=== PATIENT | male | born 1950 | race Caucasian/White ===

== ENCOUNTER 2022-12-27 10:44 | Outpatient (CLI) | payer OTHER, SELFPAY ==
--- NOTE | ~2022-12-27 | XR_ITS ---
EXAMINATION: XR barium swallow modified DATE: 12/27/2022 11:19 INDICATION: Dysphagia. TECHNIQUE: The patient was given barium-containing material of multiple consistencies to swallow by dawood doshi speech pathologist while I performed fluoroscopy. Dose-area product was [id number] Gy-cm2. FINDINGS: Oral Stage: Within functional limits Pharyngeal Phase: Within functional limits Cervical/Esophageal Stage: Within functional limits IMPRESSION: Modified esophagram findings as above. Please refer to the speech therapy report [facility]. Reviewed, dictated and finalized at [facility]. Reviewed, dictated and finalized at location [facility]. CTOR OF CATH LAB IMPRESSION: Modified esophagram findings as above. Please refer to the speech t herapy report for specific recommendations.
--- NOTE | 2022-12-27 11:56 | REHSTMBS ---
Assessment and note entered by Sita Mai, FRUIT CUTTER Modified Barium Swallow Evaluation Feeding Type Recommended Oral Food Consistency Regular, Level 7 Liquid Consistency Thin (0) ST Clinical Summary MODIFIED BARIUM SWALLOW STUDY Patient reports a history of two different bowel blockages. He did not report history of bariatric surgery however this was noted in the physician orders. Patient also expressed that he has significant gastroesophageal reflux and a burning sensation frequently. Additionally today he reported that he has pain/discomfort in the left stomach area, he described as bloating and was disappointed that this assessment does not assess that area. He did not deny swallowing difficulty but did not report any concerns with swallowing. The patient was presented with varying consistencies and exhibited quick swallows with no evidence of penetration and no pharyngeal residual after swallowing. Swallowing skills were determined to be within normal limits. Results indicate this patient may remain on Regular Diet and Liquids however he is referred back to his physician for further assessment of his complaints. Thank you for this referral.
== END 2022-12-27 10:45 | disposition home or self-care (01) ==
PROVIDERS: PCP Family Medicine; Visit Provider Family Medicine
DX: R11.10 Vomiting, unspecified (principal); Z98.84 Bariatric surgery status; D64.9 Anemia, unspecified; E66.01 Morbid (severe) obesity due to excess calories; K21.9 Gastro-esophageal reflux disease without esophagitis; J30.0 Vasomotor rhinitis
CPT/HCPCS: 92611

== ENCOUNTER 2024-10-04 11:07 | Outpatient (CLI) | payer MEDICARE, OTHER, SELFPAY ==
--- NOTE | ~2024-10-04 | CT_ITS ---
EXAMINATION:CT diagnostic chest wo con DATE: 10/04/2024 11:32 INDICATION: Pulmonary nodule. TECHNIQUE: Computed tomography (CT) of the chest was performed without intravenous contrast. Automate d exposure control and iterative reconstruction technique were employed. The dose-length product (DLP ) was 258.32 mGy-cm. COMPARISON: CT abdomen and pelvis 04/08/19 FINDINGS: Calcified pulmonary nodules and calcified hilar and mediastinal lymph nodes are consistent with old granulomatous disease. There are multiple nodules in the right lung measuring up to 7 mm. No pleural effusion. The heart size is normal. There are coronary artery calcifications. No pericardial effusion. There is bilateral gynecomastia. There are changes of gastric bypass procedure. There are changes of cholecystectomy. There are bridging endplate osteophytes at multiple levels in the spine, consistent with diffuse idiopathic skeletal hyperostosis (DISH). IMPRESSION: 1. Pulmonary nodules measuring up to 7 mm, probably benign. Noncontrast low-dose chest CT is recommen ded in 6 months. Reviewed, dictated and finalized at location A. M TURBINE OPERATOR IMPRESSION: 1. Pulmonary nodules measuring up to 7 mm, probably benign. Noncontrast low-dos e chest CT is recommended in 6 months.
== END 2024-10-04 11:08 | disposition home or self-care (01) ==
LOC: MICIMG 11:08
PROVIDERS: PCP Family Medicine; Visit Provider Family Medicine
DX: R91.8 Other nonspecific abnormal finding of lung field (principal)
CPT/HCPCS: 71250

== ENCOUNTER 2024-11-11 08:34 | Outpatient (CLI) | payer MEDICARE, OTHER, SELFPAY ==
--- NOTE | ~2024-11-11 | MR_ITS ---
EXAMINATION: MR thoracic spine wo con DATE: 11/11/2024 08:59 INDICATION: Thoracic back pain. TECHNIQUE: Magnetic resonance imaging (MRI) of the thoracic spine was performed without intravenous c ontrast. COMPARISON: Thoracic spine MRI 02/26/2019 FINDINGS: There is 10 degrees levoscoliosis of thoracic spine. There are Schmorl's nodes at multiple levels. There is mildly decreased disc height at T3-T4, T5-T6, T6-T7, T8-T9, and T10-T11. At T5-T6, t here is a central protrusion with mild central canal stenosis. There is multilevel facet joint osteoa rthritis, severe in the upper thoracic spine. On the right, there is mild neural foraminal stenosis a t T1-T2, T2-T3, and T3-T4. On the left, there is mild neural foraminal stenosis at T1-T2 and T2-T3. T he distal spinal cord signal intensity is normal. The conus medullaris is at L1. IMPRESSION: 1. Mild thoracic spondylosis, slightly worsened from 02/26/2019. 2. Thoracic levoscoliosis. Reviewed, dictated and finalized at location [] 3D ARTIST
== END 2024-11-11 08:35 | disposition home or self-care (01) ==
LOC: MICIMG 08:35
PROVIDERS: PCP Family Medicine; Visit Provider Family Medicine
DX: M43.04 Spondylolysis, thoracic region (principal); M41.84 Other forms of scoliosis, thoracic region
CPT/HCPCS: 72146

== ENCOUNTER 2025-02-28 09:06 | Outpatient (CLI) | payer MEDICARE, OTHER, SELFPAY ==
--- NOTE | ~2025-02-28 | MR_ITS ---
MRI of the lumbar spine Clinical History: Radiculopathy Technique: Axial T2-weighted images, and sagittal T1-weighted, T2-weighted, and and T2 fat-sat images were acquired. Findings: No fracture identified. There is minimal grade 1 anterolisthesis of L4 over L5. No suspicio us bone marrow signal abnormality seen. At L1-L2, L2-L3, there is no disc bulge or herniation. There is minimal facet hypertrophy. No central canal stenosis or neural foraminal narrowing at these levels. At L3-L4, there is minimal disc bulge with moderate to advanced facet arthropathy. No central canal s tenosis. There is mild right neural foraminal narrowing. Left neural foramen preserved. At L4-L5, there is mild disc bulge with advanced facet arthropathy. No central canal stenosis. There is mild right neural foraminal narrowing. Left neural foramen preserved. At L5-S1, there is mild disc bulge with moderate facet arthropathy. No central canal stenosis or neur al foraminal narrowing. Paravertebral soft tissues are unremarkable. Impression: Mild degenerative spondylosis overall, as above. Reviewed, dictated and finalized at [facility]. Impression: Mild degenerative spondylosis overall, as above.
== END 2025-02-28 09:07 | disposition home or self-care (01) ==
LOC: MICIMG 09:07
PROVIDERS: PCP Family Medicine; Visit Provider Physician Assistant
DX: M47.816 Spondylosis without myelopathy or radiculopathy, lumbar region (principal); M47.817 Spondylosis without myelopathy or radiculopathy, lumbosacral region
CPT/HCPCS: 72148

== ENCOUNTER 2025-06-19 10:59 | Outpatient (CLI) | payer MEDICARE, OTHER, SELFPAY ==
--- OUTSIDE RECORDS SUMMARY | 2025-06-19 11:16 | XMS_ITS | Encounter Summary ---
Author Organization [facility] Address [address] [facility] [address] [place] [address] Phone Care Team Providers Care Membership Sales Manager Name Role Phone Marielos Gonzalez MD Primary Care Provider Melissa Nichole MD Unavailable Encounter Details Date Type Department Care Team (Latest Contact Info) Description 03/06/2021 Orders Only [facility] Scanning, Provider Social History Tobacco Use Types Packs/Day Years Used Date Smoking Tobacco: Never Smokeless Tobacco: Never Alcohol Use Standard Drinks/Week Comments No 0 (1 standard drink = 0.6 oz pur e alcohol) Sex and Gender Information Value Date Recorded Sex Assigned at Not on file 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 Look okay except low HDL cholesterol. Continue current meds. * María Elena Marinelli MD - 03/06/2021 11:59 PM CDT Has he ever been on a statin? * Rhea Radford RN - 03/06/2021 11:59 PM CDT 04/29: spoke w/ pts re: CHRISTINA's recs. She verb understanding. Instructed her to have pt call w/ any issues. * Rhea Radford RN - 03/06/2021 11:59 PM CDT Pt has never taken statin. ALB informed and aware. documented in this encounter Plan of Treatment Not on file documented as of this encounter Procedures Procedure Name Priority Date/Time Associated Diagnosis Comments SCAN - LABS 03/06/2021 documented in this encounter Results * SCAN - LABS (03/06/2021) us Provider Scanning Final Result documented in this encounter Visit Diagnoses Not on filedocumented in this encounter Additional Health Concerns Infection Onset Date Last Indicated Resolved Time COVID: Suspected 08/03/2024 08/03/2024 08/03/2024 6:32 PM CDT COVID: Suspected 08/04/2024 08/04/2024 08/04/2024 1:09 AM CDT documented as of this encounter Care Teams Membership Sales Manager Relationship Specialty Start Date End Date Marielos Gonzalez MD [address] [place] [address] PCP - General Family Medicine 8/30/18 Melissa Nichole MD [id number] [place] [address] Consulting Physician General Surgery 07/08/22 documented as of this encounter
--- OUTSIDE RECORDS SUMMARY | 2025-06-19 11:16 | XMS_ITS | Encounter Summary ---
Author Organization [facility] Address [address] [facility] [address] [place] [address] Phone Care Team Providers Care Hotel Staff Member Name Role Phone Marielos Gonzalez MD Primary Care Provider Melissa Nichole MD Unavailable [phone] Encounter Details Date Type Department Care Team (Late st Contact Info) Description 08/29/2018 Telephone [facility] [address] [facility] Advanced Medicine 8th [place] [address] [place] [address] Naseem Arriaga MD [address] 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 Gender Identity Male 03/29/2022 4:39 AM CDT Sexual Orientation Straight 07/02/2021 12 :35 PM CDT documented as of this encounter Plan of Treatment Not on file documented as of this encounter Visit Diagnoses Not on filedocumented in this encounter Additional Health Concerns Infection Onset Date Last Indicated Resolved Time COVID: Suspected 08/03/2024 08/03/2024 08/03/2024 6:32 PM CDT COVID: Suspected 08/04/2024 08/04/2024 08/04/2024 1:09 AM CDT documented as of this encounter Care Teams Hotel Staff Member Relationship Specialty Start Date End Date Marielos Gonzalez MD [address] [place] [address] PCP - General Family Medicine 07/19/18 Melissa Nichole MD [id number] [place] [address] Consulting Physician General Surgery 07/08/22 documented as of this encounter
--- OUTSIDE RECORDS SUMMARY | 2025-06-19 11:16 | XMS_ITS | Patient Health Record ---
Author Organization Formerly [facility], [facility] dicine Address [address] [place] [address] Care Team Providers Care Inventory Management Specialist Name Role Phone Dr. Marielos Gonzalez Primary Care Provider [phone] Migration, Provider Unavailable Unavailable Allergies Allergen (clinical drug ingredient) Drug/Non Drug Allergy documented on EMR Reaction Allergy Type Onset Date Status Dye dye (uncoded) contrast dye Allergy 07/15/2021 Ac tive Results Component Value Reference Range Flag Notes B-Type Natriuretic Peptide Reviewed date:08/10/2024 12:00:00 AM Interpretation: Performing Lab: Notes/Report: BNP 26 pg/mL Comprehensive Metabolic Pane l Reviewed date:08/10/2024 12:00:00 AM Interpretation: Performing Lab: Notes/Report: Albumin Lvl 3.8 g/dL Albumin/Globulin Ratio 1.3 Alk Phos 102 unit/L ALT 53 unit/L ANION GAP 3.6 mmol/L AST 60 unit/L Bilirubin Total 0.7 mg/dL BUN 17 mg/dL Calcium Lvl 9.2 mg/dL Chloride Lvl 99 mmol/L CO2 30 mmol/L Creatinine Lvl 1.18 mg/dL eGFR CKD-EPI 65 mL/min/1.73 m2 Glucose Lvl 93 mg/dL Potassium Lvl 5.2 mmol/L Protein Total 6.8 g/dL Sodium Lvl 133 mmol/L Magnesium Reviewed date:08/10/2024 12:00:00 AM Interpretation: Performing Lab: Notes/Report: Magnesium Lvl 2.4 mg/dL Comprehensive Metabolic Pane l Reviewed date:08/20/2024 12:00:00 AM Interpretation: Performing Lab: Notes/Report: Albumin Lvl 3.8 g/dL Albumin/Globulin Ratio 1.3 Alk Phos 80 unit/L ALT 32 unit/L ANION GAP 3.6 mmol/L AST 31 unit/L Bilirubin Total 0.7 mg/dL BUN 24 mg/dL Calcium Lvl 9.2 mg/dL Chloride Lvl 104 mmol/L CO2 24 mmol/L Creatinine Lvl 1.53 mg/dL eGFR CKD-EPI 48 mL/min/1.73 m2 Glucose Lvl 179 mg/dL Potassium Lvl 4.3 mmol/L Protein Total 6.7 g/dL Sodium Lvl 132 mmol/L Basic Metabolic Panel Reviewed date:09/10/2024 12:00:00 AM Interpretation: Performing Lab: Notes/Report: ANION GAP 3.6 mmol/L BUN 20 mg/dL Calcium Lvl 9.1 mg/dL Chloride Lvl 107 mmol/L CO2 25 mmol/L Creatinine Lvl 1.26 mg/dL eGFR CKD-EPI 60 mL/min/1.73 m2 Glucose Lvl 116 mg/dL Potassium Lvl 4.5 mmol/L Sodium Lvl 136 mmol/L Comprehensive Metabolic Pane l Reviewed date:06/19/2025 09:00:03 AM Interpretation: Performing Lab: Notes/Report: Test Performed by: [place] [address] [employer] Setter Lock[employer]ch: Bill Ortega DO Report Forwarded By: [id number] [address] Glucose Lvl 76 74-109 mg/dL ADA risk stratification for diabetes <100 mg/dL = Normal 100-125 mg/dL = Increased risk for future diabetes >=126 mg/dL = Diabetes, if on more than one testing occasion BUN 14 7-25 mg/dL Creatinine Lvl 1.04 0.70-1.30 mg/dL eGFR CKD-EPI 76 >=90 mL/min/1.73 m2 L The CKD-EPI equation is validated in individuals 18 years of age and older. It is less accurate in patients with extremes of muscle mass, restriction of dietary protein, ingestion of creatine, extra-renal metabolism of creatinine, or treatment with medications that affect renal tubular creatinine secretion. GFR Categories in Chronic Kidney Disease (CKD) GFR GFR (mL/min/1.73 Category: square meters): Interpretation: G1 90 or greater Normal or high* G2 60-89 Mild decrease* G3a 45-59 Mild to moderate decrease G3b 30-44 Moderate to severe decrease G4 15-29 Severe decrease G5 14 or less Kidney failure *In the absence of evidence of kidney damage, neither GFR category G1 nor G2 fulfill the criteria for CKD (Kidney Int Suppl 2013;3:1-150) Calcium Lvl 9.5 8.6-10.3 mg/dL Sodium Lvl 137 136-145 mmol/L Potassium Lvl 4.2 3.5-5.1 mmol/L Chloride Lvl 107 98-107 mmol/L CO2 26 21-31 mmol/L Anion Gap 3.6 <=16.0 mmol/L Alk Phos 77 34-104 unit/L Bilirubin Total 0.6 0.3-1.0 mg/dL Albumin Lvl 4.2 3.5-5.2 g/dL Protein Total 6.5 6.4-8.9 g/dL Albumin/Globulin Ratio 1.8 1.1-2.5 ALT 41 7-52 unit/L AST 27 13-39 unit/L Charge Venipuncture Reviewed date:06/19/2025 09:00:03 AM Interpretation: Performing Lab: Notes/Report: Report Forwarded By: [address] [place] [address] Hemoglobin A1c Reviewed date:04/03/2025 02:37:54 PM Interpretation: Performing Lab: Notes/Report: Magnesium, Serum Reviewed date:04/03/2025 02:36:58 PM Interpretation: Performing Lab: Notes/Report: Thyroxine (T4) Free, Direct, S Reviewed date:04/03/2025 02:36:25 PM Interpretation: Performing Lab: Notes/Report: TSH Reviewed date:04/03/2025 02:37:39 PM Interpretation: Performing Lab: Notes/Report: CBC With Differential/Platel et Reviewed date:04/03/2025 02:37:14 PM Interpretation: Performing Lab: Notes/Report: Comp. Metabolic Panel (14) Reviewed date:04/03/2025 02:36:41 PM Interpretation: Performing Lab: Notes/Report: PSA, total Reviewed date:04/03/2025 02:36:09 PM Interpretation: Performing Lab: Notes/Report: Charge Venipuncture Reviewed date:06/19/2025 08:31:31 AM Interpretation: Performing Lab: Notes/Report: Report Forwarded By: [address] [place] [address] Hemoglobin A1c {Glycosylated } Reviewed date:06/19/2025 08:31:31 AM Interpretation: Performing Lab: Notes/Report: Test Performed by: [place] [address] Zipper Setter Lock[employer]ch: Bill Ortega DO Report Forwarded By: [address] [place] [address] Hemoglobin A1c 5.0 <=6.4 % Hemoglobin A1C < 5.7% = Normal 5.7-6.4% = Increased risk for future diabetes >=6.5% = Diabetes eAvg Glucose 97 <=117 mg/dL eAG Reference Range <117 mg/dL = Normal 117-137 mg/dL = Increased Risk For Future Diabetes >137 mg/dL = Diabetes T4 Free Reviewed date:06/19/2025 08:31:31 AM Interpretation: Performing Lab: Notes/Report: Test Performed by: [place] [id number] [employer]ch: Bill Ortega DO Report Forwarded By: [address] [place] [address] T4 Free 0.89 0.60-1.70 ng/dL CBC w Auto Diff Reviewed date:06/19/2025 08:31:31 AM Interpretation: Performing Lab: Notes/Report: Test Performed by: [address] [address] Zipper Setter Lock[employer]ch: Bill Ortega DO Report Forwarded By: [address] [place] [address] WBC 6.5 4.0-11.7 K/mcL RBC 4.23 4.28-5.56 x10*6/mcL L Hgb 13.4 13.0-17.0 g/dL Hct 40.4 38.1-48.9 % MCV 95.5 83.4-98.1 fL MCH 31.7 27.0-34.2 pg MCHC 33.2 31.8-35.3 g/dL RDW 14.5 12.0-16.4 % Platelets 266 149-393 K/mcL MPV 7.2 7.0-11.0 fL Neutro Auto 49.9 45.3-79.0 % Lymph Auto 42.7 11.8-45.9 % Hettinger Auto 6.1 4.4-12.0 % Eosinophil Auto 1.1 0.0-6.3 % Basophil Auto 0.2 0.2-1.6 % Neutro Absolute 3.3 2.4-8.4 x10*3/mcL Lymph Absolute 2.8 0.8-3.7 x10*3/mcL Hettinger Absolute 0.4 0.3-1.1 x10*3/mcL Eos Absolute 0.1 0.0-0.5 x10*3/mcL Comprehensive Metabolic Pane l Reviewed date:06/19/2025 08:31:31 AM Interpretation: Performing Lab: Notes/Report: Test Performed by: Catherine Garcia [address] [address] Zipper Setter Lock[employer]ch: Bill Ortega DO Report Forwarded By: [address] [address] Glucose Lvl 125 74-109 mg/dL H ADA risk stratification for diabetes <100 mg/dL = Normal 100-125 mg/dL = Increased risk for future diabetes >=126 mg/dL = Diabetes, if on more than one testing occasion BUN 19 7-25 mg/dL Creatinine Lvl 1.18 0.70-1.30 mg/dL eGFR CKD-EPI 65 >=90 mL/min/1.73 m2 L The CKD-EPI equation is validated in individuals 18 years of age and older. It is less accurate in patients with extremes of muscle mass, restriction of dietary protein, ingestion of creatine, extra-renal metabolism of creatinine, or treatment with medications that affect renal tubular creatinine secretion. GFR Categories in Chronic Kidney Disease (CKD) GFR GFR (mL/min/1.73 Category: square meters): Interpretation: G1 90 or greater Normal or high* G2 60-89 Mild decrease* G3a 45-59 Mild to moderate decrease G3b 30-44 Moderate to severe decrease G4 15-29 Severe decrease G5 14 or less Kidney failure *In the absence of evidence of kidney damage, neither GFR category G1 nor G2 fulfill the criteria for CKD (Kidney Int Suppl 2013;3:1-150) Calcium Lvl 8.8 8.6-10.3 mg/dL Sodium Lvl 134 136-145 mmol/L L Potassium Lvl 4.4 3.5-5.1 mmol/L Chloride Lvl 106 98-107 mmol/L CO2 23 21-31 mmol/L Anion Gap 4.6 <=16.0 mmol/L Alk Phos 84 34-104 unit/L Bilirubin Total 0.9 0.3-1.0 mg/dL Albumin Lvl 3.7 3.5-5.2 g/dL Protein Total 6.1 6.4-8.9 g/dL L Albumin/Globulin Ratio 1.5 1.1-2.5 ALT 66 7-52 unit/L H AST 40 13-39 unit/L H Lipid Panel {Chol, Trig, HDL , LDL} Reviewed date:06/19/2025 08:31:31 AM Interpretation: Performing Lab: Notes/Report: Test Performed by: [place] [id number] Zipper Setter Lockstitch: Bill Ortega DO Report Forwarded By: [address] [place] [address] Cholesterol Total 107 <=199 mg/dL Triglycerides 167 0-149 mg/dL H Triglyceride Reference Ranges: <150 mg/dL Normal 150 - 199 mg/dL Borderline High 200 - 499 mg/dL High >=500 mg/dL Very High LDL 38 <=100 mg/dL LDL Optimal: <100 Near or above optimal: 100-129 Borderline high: 130-159 High: 160-189 Very high: >=190 Coronary heart disease risk factors should be considered when determining LDL goals. Please refer to ATPIII guidelines for further information. If LDL is not calculated, please call the lab to add on the direct LDL methodology, if desired. HDL 35 23-92 mg/dL Non HDL Cholesterol 72 <=130 mg/dL Chol/HDL 3 0-5 Coronary Risk 33 Coronary Risk Factor - Male Dangerous Risk: <7 % High Risk: 7-15 % Average Risk: 15-25 % Below Average Risk: 25-37 % Coronary Risk Factor - Female Dangerous Risk: <12 % High Risk: 12-18 % Average Risk: 18-27 % Below Average Risk: 27-40 % Magnesium Reviewed date:06/19/2025 08:31:31 AM Interpretation: Performing Lab: Notes/Report: Test Performed by: [address] [address] Zipper Setter Lockstitch: Bill Ortega DO Report Forwarded By: [address] [place] [address] Magnesium Lvl 2.0 1.6-2.4 mg/dL Thyroid Stimulating Hormone Reviewed date:06/19/2025 08:31:31 AM Interpretation: Performing Lab: Notes/Report: Test Performed by: [address] [address] Zipper Setter Lockstitch: Bill Ortega DO Report Forwarded By: [address] [place] [address] TSH 2.05 0.45-5.33 mcIU/mL PSA Annual Screening Reviewed date:06/19/2025 08:31:31 AM Interpretation: Performing Lab: Notes/Report: Test Performed by: [address] [address] Zipper Setter Lockstitch: Bill Ortega DO Report Forwarded By: [address] [place] [address] PSA Total 3.42 0.00-4.00 ng/mL Reason For Referral [facility] please Diagnosis 1 Pain in thoracic spi ne (M54.6) Referral Organization [facility] Referring Provider First Name Dr. Arceo Referring Provider Last Name Benld Referring Provider [facility]ity [facility] Referred Provider Specialty Pain Medicin e General Notes Vane Epps 0 12/13/2024 11:08:38 AM MENTAL HEALTH PROFESSIONAL >Faxed referral to Interventional Pain [phone] Jessica 12/23/2024 03:30:06 PM MENTAL HEALTH PROFESSIONAL >Called office to check status of referral. Office reached out to pt twice but mailbox was full and they were unable to leave message. Pt's in office on 12/23/24 and inquired about status. Gave phone number for pt to schedule Ezekiel wu Kaitlin 01/16/2025 05:50:51 PM MENTAL HEALTH PROFESSIONAL >consult note in chart. Referral Priority Routine Referral Appointment Date 01/02/2025 Medications Medication SIG (Take, Route, Frequency, Duration) Notes Start Date End Date Status Gabapentin 100 MG Capsule 1 by mouth EVERY MORNING, 1 by mouth EVERY AFTERNOON AND 3 by mouth EVERY HS.; Duration: 30 Active Olmesartan Medoxomil 20 MG Tablet 1 tablet Orally Once a day Active tiZANidine HCl 2 MG Tablet 1 tablet at bedtime as needed Orally 3 times a day As needed 11/29/2024 Active EXEL SYRINGE 3 mL 25 gauge x 1 SYRINGE, EMPTY DISPOSABLE MISCELLANEOUS; Duration: 0 *Reorder from [facility] for eRx and Interaction Alerts* 04/20/2023 Active Cyanocobalamin 1000 MCG/ML Solution Injection; Duration: 0 04/20/2023 Active Potassium Chloride Rehana ER 20 MEQ Tablet Extended Release TAKE 2 TABLET(S) BY MOUTH TWO TIMES A DAY; Duration: 30 Active Wazzle EntertainmentTouch Ultra Test ; Duration: 0 *Reorder fro [facility] for eRx and Interaction Alerts* 08/22/2022 Active Dofetilide 500 MCG Capsule 1 Oral daily; Duration: 0 days 07/19/2021 Active amLODIPine Besylate 5 MG Tablet 1 tablet Orally Once a day; Duration: 90 days Active Spironolactone 25 MG Tablet 1 Oral every day; Duration: 0 12/13/2023 Active Ketoconazole 2 % Cream External; Duration: 0 04/29/2024 Not-Taking Space Chamber ; Duration: 0 *Reorder from [facility] for eRx and Interaction Alerts* 07/19/2021 Active Dexlansoprazole 60 MG Capsule Delayed Release 1 capsule Orally Once a day; Duration: 90 days Active Jardiance 25 MG Tablet 1 tablet Orally Once a day; Duration: 90 days Active Ozempic (1 MG/DOSE) 4 MG/3ML Solution Pen-injector as directed Subcutaneous Active [employer] Ultra 2 w/Device Kit ; Duration: 0 08/22/2022 Active B Complex 1 (with folic acid) oral; Duration: 0 *Reorder from [facility] for eRx and Interaction Alerts* 07/15/2021 Active Lidocaine 5 % Patch TAKE 1 patch TOPICAL EVERY DAY (MAY WEAR UP TO 12HOURS.); Duration: 30 Active ONE TOUCH LANCETS EACH MISCELLANEOUS; Duration: 0 *Reorder from [facility] for eRx and Interaction Alerts* 08/22/2022 Active Ferrous Sulfate 325 (65 Fe) MG Tablet 1 Oral every day; Duration: 0 01/28/2022 Active Finasteride 5 MG Tablet 1 tablet Orally Once a day; Duration: 90 days Active Cyclobenzaprine HCl 5 MG Tablet 1 TABLET ORALLY EVERY NIGHT AT BEDTIME; Duration: 30 Active Xarelto 20 MG Tablet 1 tablet with food Orally Once a day; Duration: 90 days Active Loratadine 10 MG Tablet 1 tablet Orally Once a day; Duration: 90 days Active Immunizations Vaccine Route Administration Date Status Comme nts Influenza, high dose seasonal IM Intramuscular 08/27/2024 Administered ,sourcename : N ew immunization record ,immstatus : Complete Influenza, high-dose seasonal, quadrivalent, preservative free >65 yrs IM Intramuscular 10/04/2021 Administered ,sourcename : N ew immunization record ,immstatus : Complete Influenza, high-dose seasonal, quadrivalent, preservative free >65 yrs IM Intramuscular 08/28/2023 Administered ,sourcename : N ew immunization record ,immstatus : Complete Pfizer-Biontech Covid-19 Vaccine 1st dose Unknown 12/25/2020 Administered ,sourcename : Historical information -from other registry Source VFC Code: : Pfizer-Biontech Covid-19 Vaccine 1st dose Unknown 01/22/2021 Administered ,sourcename : Historical information -from other registry Source VFC Code: : Pfizer-Biontech Covid-19 Vaccine 1st dose Unknown 10/12/2021 Administered ,sourcename : Historical information -from public agency Source VFC Code: : Pfizer-Biontech Covid-19 Vaccine 1st dose IM Intramuscular 09/15/2023 Administered ,sourcename : N ew immunization record ,immstatus : Complete Pfizer-Biontech Covid-19 Vaccine 1st dose IM Intramuscular 08/27/2024 Administered ,sourcename : N ew immunization record ,immstatus : Complete Pneumococcal conjugate PCV 13 Unknown 02/28/2018 Administered ,sourcename : Historical information -from other registry Source VFC Code: : Pneumococcal polysaccharide PPV23 Unknown 10/26/2015 Administered ,sourcename : Historical information -from other registry Source VFC Code: : RSV-MAb (Respiratory syncytial virus immune globulin) IM Intramuscular 09/26/2023 Administered Source VFC Code: : Tdap Unknown 02/28/2018 Administered ,sourcename : Historical information -from other registry Source VFC Code: : Zoster Unknown 09/05/2019 Administered ,sourcename : Historical information -from other registry Source VFC Code: : Zoster Unknown 12/16/2019 Administered ,sourcename : Historical information -from other registry Source [facility] Code: : Social History Tobacco Use: Social History Observation Description Date Details (start date - stop date) Never Smoker NA - NA Social History Drug/Alcohol: Social Info Question Answer Notes AUDIT-C (Standard) Did you have a drink containing alcohol in the past year? No Points 0 Interpretation Negative Tobacco Use: Social Info Question Answer Notes Tobacco Control (Standard) Tobacco use: Nonsmoker Additional Details Category Social Info Options Details Migrated Social History Migrated Social History Number of children:4 , Employment:Currently employed ,notes : [employer] , Marital status: , Tobacco history:Never smoker , Alcohol history:Never drinks alcohol Problems Problem Type SNOMED Code ICD Code Onset Dates Problem Status W/U Status Risk Notes Problem Diabetic renal disease (291985006) Type 2 diabetes mellitus with diabetic chronic kidney disease (E11.22) Active confirmed Problem Heart failure (36574746) Heart failure, unspecified (I50.9) Active confirmed Problem Chronic kidney disease stage 2 (409058773) Chronic kidney disease, stage 2 (mild) (N18.2) Active confirmed Problem Body mass index 35.00 to 39.99 (715252375467746) Body mass index [BMI] 37.0-37.9, adult (Z68.37) Active confirmed Problem Thoracic spinal stenosis (42980921) Thoracic spinal stenosis (M48.04) Active confirmed Problem Anemia (152626753) Anemia, unspecified (D64.9) Active confirmed Problem Hypokalemia (55021812) Hypokalemia (E87.6) Active confirmed Problem Paroxysmal atrial fibrillation (195458134) Paroxysmal atrial fibrillation (I48.0) 024 Active confirmed Problem Atrial fibrillation (59403620) Unspecified atrial fibrillation (I48.91) Active confirmed Problem Pulmonary fibrosis (85592442) Pulmonary fibrosis, unspecified (J84.10) 018 Active confirmed Problem Dental caries (56889834) Dental caries, unspecified (K02.9) Active confirmed Problem Gastro-esophageal reflux disease without esophagitis (045998518) Gastro-esophageal reflux disease without esophagitis (K21.9) 02/08/2 022 Active confirmed Problem Seborrheic keratosis (14297430) Other seborrheic keratosis (L82.1) Active confirmed Problem 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 Problem Dyspnea (697576174) Dyspnea, unspecified (R06.00) Active confirmed Problem Flatulence, eructation and gas pain (484092025) Gas pain (R14.1) Active confirmed Problem Blood chemistry abnormal (785005921) Other specified abnormal findings of blood chemistry (R79.89) Active confirmed Problem Solitary pulmonary nodule (358195257) Solitary pulmonary nodule (R91.1) Active confirmed Problem History of bariatric surgical procedure (699171324) Bariatric surgery status (Z98.84) Active confirmed Problem Tinea cruris (disorder) (772036464) Dermatophytosis of groin and perianal area (110.3) Problem resolved confirmed Problem Candidiasis (31420332) Candidiasis of unspecified site (112.9) Problem resolved confirmed Problem Infective otitis externa (disorder) (62698366) Unspecified infective otitis externa (380.10) Problem resolved confirmed Problem Blood chemistry abnormal (264746752) Other abnormal blood chemistry (790.6) Problem resolved confirmed Problem Pneumococcal conjugate vaccination (422829675820483) Need for prophylactic vaccination against streptococcus pneumoniae (pneumococcus) (V03.82) Problem resolved confirmed Problem Requires influenza virus vaccination (737443239) Need for prophylactic vaccination and inoculation, Influenza (V04.81) Problem resolved confirmed Problem Tinea cruris (995534585) Tinea cruris (B35.6) Problem resolved confirmed Problem Candidiasis (42987963) Other sites of candidiasis (B37.89) 023 Problem resolved confirmed Problem Infective otitis externa (71292152) Other infective otitis externa, right ear (H60.391) 04/11/2 018 Problem resolved confirmed Problem Chronic sinusitis (96263338) Chronic sinusitis, unspecified (J32.9) 024 Problem resolved confirmed Problem Dysuria (19412086) Dysuria (R30.0) 017 Problem resolved confirmed Problem Painful micturition (22141711) Painful micturition, unspecified (R30.9) 017 Problem resolved confirmed Problem COVID-19 (488759481) COVID-19 (U07.1) 024 Problem resolved confirmed Problem Joint pain (38898438) Pain in joint, site unspecified (719.40) 017 Problem resolved confirmed Problem Generalized atopic dermatitis (880069274) Other atopic dermatitis and related conditions (691.8) 017 Problem resolved confirmed Problem Backache (618367665) Unspecified backache (724.5) 019 Problem resolved confirmed Problem Umbilical hernia (607813441) Umbilical hernia without mention of obstruction or gangrene (553.1) 018 Problem resolved confirmed Problem Esophageal reflux (220827705) Esophageal reflux (530.81) 018 Problem resolved confirmed Problem Impacted cerumen (57389939) Impacted cerumen (380.4) 018 Problem resolved confirmed Problem Psychosexual dysfunction associated with inhibited sexual excitement (671794178967175) Psychosexual dysfunction with inhibited sexual excitement (302.72) 018 Problem resolved confirmed Problem Viral screening (052290149) Encounter for screening for other viral diseases (Z11.59) 024 Inactive confirmed Problem Trochanteric bursitis of right hip (612685677458630) Trochanteric bursitis, right hip (M70.61) 023 Inactive confirmed Problem Acute eczematoid otitis externa, left ear (H60.542) 023 Inactive confirmed Problem Enlarged prostate (475995520) Enlarged prostate without lower urinary tract symptoms (N40.0) 021 Active confirmed Problem Body mass index 40+ - severely obese (198346770) Body mass index (BMI) 40.0-44.9, adult (Z68.41) 024 Active confirmed Problem Dry mouth (38615009) Dry mouth, unspecified (R68.2) Active confirmed Problem Paresthesia (finding) (51124996) Paresthesia of skin (R20.2) Active confirmed Problem Dysphagia (18790402) Dysphagia, unspecified (R13.10) Active confirmed Problem Scoliosis (849688844) Scoliosis, unspecified (M41.9) Active confirmed Problem Primary generalised osteoarthritis (759929725) Primary generalized (osteo)arthritis (M15.0) Active confirmed Problem Constipation (43518426) Constipation, unspecified (K59.00) Active confirmed Problem Chronic diastolic heart failure (493020676) Chronic diastolic (congestive) heart failure (I50.32) Active confirmed Problem Essential hypertension (60130220) Essential (primary) hypertension (I10) Active confirmed Problem Lesion of ulnar nerve (942745087) Lesion of ulnar nerve, right upper limb (G56.21) 023 Active confirmed Problem Insomnia (875035930) Insomnia, unspecified (G47.00) Active confirmed Problem Morbid obesity (disorder) (103589461) Morbid (severe) obesity due to excess calories (E66.01) Active confirmed Problem Copper deficiency (86304128) 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) Active confirmed Problem Vitamin B deficiency (23086366) Deficiency of other specified B group vitamins (E53.8) 023 Active confirmed Problem Leukocytosis (280533315) Elevated white blood cell count, unspecified (D72.829) Active confirmed Problem Joint pain (15223421) Pain in unspecified joint (M25.50) 017 Problem resolved confirmed Problem Dermatitis (596393281) Dermatitis, unspecified (L30.9) 023 Problem resolved confirmed Problem Atopic dermatitis (86362132) Atopic dermatitis, unspecified (L20.9) 017 Problem resolved confirmed Problem Umbilical hernia (887896380) Umbilical hernia without obstruction or gangrene (K42.9) 018 Problem resolved confirmed Problem Bilateral inguinal hernia (34721157) Bilateral inguinal hernia, without obstruction or gangrene, not specified as recurrent (K40.20) 018 Problem resolved confirmed Problem Impacted cerumen (98668148) Impacted cerumen, bilateral (H61.23) 018 Problem resolved confirmed Problem Impacted cerumen (50612347) Impacted cerumen, left ear (H61.22) 018 Problem resolved confirmed Problem Impacted cerumen (51519534) Impacted cerumen, right ear (H61.21) 018 Problem resolved confirmed Problem Male erectile disorder (200840086) Male erectile disorder (F52.21) 018 Problem resolved confirmed Problem Obesity (303266335) Obesity, unspecified (E66.9) 017 Problem resolved confirmed Problem Candidiasis (62197297) Candidiasis, unspecified (B37.9) 023 Problem resolved confirmed Problem Screening for malignant neoplasm of prostate (650968356) Special screening for malignant neoplasm of prostate (V76.44) 019 Problem resolved confirmed Problem Vaccine product containing only acellular Bordetella pertussis and Clostridium tetani and Corynebacterium diphtheriae antigens (medicinal product) (142542035) Diphtheria-tetanus -pertussis, combined [DTP] [DtaP] (V06.1) 018 Problem resolved confirmed Problem Lumbago (331177232) Lumbago (724.2) 018 Problem resolved confirmed Problem Pain in thoracic spine (666840179) Pain in thoracic spine (724.1) 019 Problem resolved confirmed Problem Diaphragmatic hernia (55405638) Diaphragmatic hernia without mention of obstruction or gangrene (553.3) 018 Problem resolved confirmed Problem Bilateral inguinal hernia (76302325) Inguinal hernia without mention of obstruction or gangrene, bilateral, (not specified as recurrent) (550.92) 018 Problem resolved confirmed Problem 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/2 018 Problem resolved confirmed Problem Low back pain (098860376) Low back pain, unspecified (M54.50) Active confirmed Problem Chronic kidney disease stage 3A (disorder) (691835674) Chronic kidney disease, stage 3a (N18.31) Active confirmed Problem Laboratory test result abnormal (830664046) Abnormal levels of other serum enzymes (R74.8) Active confirmed Problem Overactive bladder (320183393) Overactive bladder (N32.81) Active confirmed Problem Pain in thoracic spine (677254507) Pain in thoracic spine (M54.6) Active confirmed Problem Polyp of colon (37106861) Polyp of colon (K63.5) Active confirmed Problem Diaphragmatic hernia (14211424) Diaphragmatic hernia without obstruction or gangrene (K44.9) Active confirmed Problem Vasomotor rhinitis (4840530) Vasomotor rhinitis (J30.0) Active confirmed Problem Left bundle branch block (78571570) Left bundle-branch block, unspecified (I44.7) Active confirmed Problem Sleep apnea (80673732) Sleep apnea, unspecified (G47.30) Active confirmed Vital Signs Heart Rate 60 /min 01/23/2025 Temperature 97.7 degrees Fahrenheit 01/23/2025 Respiratory Rate 18 /min 01/23/2025 Height-cm 162.56 cm 01/23/2025 Oximetry 97 % 01/23/2025 Blood pressure diastolic 70 mm Hg 01/23/2025 Weight-kg 100.06 kg 01/23/2025 Height 64 in 01/23/2025 Blood pressure systolic 126 mm Hg 01/23/2025 Weight 220.6 lbs 01/23/2025 BMI 37.86 kg/m2 01/23/2025 Encounters Encounter Location Date Provider Diagnosis [facility] [address] [place] [address] 07/10/2024 Provider Migration Encounter for screening for other viral diseases Z11.59 ; Dermatitis, unspecified L30.9 ; Acute eczematoid otitis externa, left ear H60.542 ; Candidiasis, unspecified B37.9 ; Trochanteric bursitis, right hip M70.61 ; Encounter for immunization Z23 ; Chronic sinusitis, unspecified J32.9 ; COVID-19 U07.1 and Other sites of candidiasis B37.[address] [address] 07/31/2024 Dr. Marielos Gonzalez Acute systolic (congestive) heart failure I50.21 ; Pneumonia, unspecified organism J18.9 ; Hypokalemia E87.6 ; Morbid (severe) obesity due to excess calories E66.01 and Unspecified atrial fibrillation I48.[address] [address] 08/02/2024 Provider Migration Dyspnea, unspecified R06.00 ; Hypokalemia E87.6 ; Chronic diastolic (congestive) heart failure I50.32 and Chronic kidney disease, stage 3a N18.[address] [address] 08/09/2024 Dr. Marielos Gonzalez Acute respiratory failure with hypoxia J96.01 ; Acute on chronic diastolic (congestive) heart failure I50.33 ; Essential (primary) hypertension I10 ; Abnormal levels of other serum enzymes R74.8 ; Morbid (severe) obesity due to excess calories E66.01 ; Pneumonia, unspecified organism J18.9 ; Unspecified atrial fibrillation I48.91 ; Acute kidney failure, unspecified N17.9 and Solitary pulmonary nodule R91.[address] [address] 08/12/2024 Provider Migration Shortness of breath R06.[address] [address] 08/20/2024 Provider Migration Chronic kidney disease, stage 3a N18.[address] [address] 08/27/2024 Dr. Marielos Gonzalez Encounter for immunization Z23 [address] [address] 09/16/2024 Provider Migration Essential (primary) hypertension I10 and Abnormal levels of other serum enzymes R74.[address] [address] 09/23/2024 Dr. Marielos Gonzalez Paroxysmal atrial fibrillation I48.0 ; Chronic diastolic (congestive) heart failure I50.32 ; Strain of muscle and tendon of front wall of thorax, initial encounter S29.011A ; Chest pain, unspecified R07.9 ; Strain of muscle, fascia and tendon of lower back, initial encounter S39.012A ; Left bundle-branch block, unspecified I44.7 ; Scoliosis, unspecified M41.9 ; Morbid (severe) obesity due to excess calories E66.01 and Chronic kidney disease, stage 3 unspecified N18.[address] [address] 09/25/2024 Provider Migration Solitary pulmonary nodule R91.[address] [address] 10/10/2024 Provider Migration Solitary pulmonary nodule R91.[address] [address] 10/16/2024 Dr. Marielos Gonzalez Pain in thoracic spine M54.6 ; Low back pain M54.5 ; Strain of muscle and tendon of front wall of thorax, initial encounter S29.011A and Other congenital malformations of ribs Q76.[address] [address] 11/29/2024 Dr. Marielos Gonzalez Unspecified atrial fibrillation I48.91 ; Morbid (severe) obesity due to excess calories E66.01 ; Essential (primary) hypertension I10 ; Prediabetes R73.03 ; Sleep apnea, unspecified G47.30 ; Pain in thoracic spine M54.6 ; Scoliosis, unspecified M41.9 ; Thoracic spinal stenosis M48.04 and Prostate cancer screening Z12.[address] [address] 01/23/2025 Dr. Marielos Gonzalez Morbid (severe) obesity due to excess calories E66.01 ; Annual wellness visit Z00.00 ; Body mass index [BMI] 37.0-37.9, adult Z68.37 ; Obesity, class 2 E66.812 ; Paroxysmal atrial fibrillation I48.0 ; Chronic diastolic (congestive) heart failure I50.32 ; Sleep apnea, unspecified G47.30 ; Thoracic spinal stenosis M48.04 ; Bariatric surgery status Z98.84 ; Chronic renal impairment, stage 2 (mild) N18.2 ; Type 2 diabetes mellitus with diabetic chronic kidney disease E11.22 ; Chronic kidney disease, stage 2 (mild) N18.2 and Essential (primary) hypertension I10 [address] [address] 10/19/2024 Provider Migration [address] [address] 10/20/2024 Provider Migration [address] [address] 11/13/2024 Dr. Marielos Gonzalez [address] [address] 12/03/2024 Dr. Marielos Gonzalez [address] [address] 12/17/2024 Dr. Marielos Gonzalez Elevated LFTs R79.[address] [address] 01/23/2025 Dr. Marielos Gonzalez Assessments Encounter Date Diagnosis (ICD Code) Assessment Notes Treatment Notes Treatment Clinical Notes Section Notes 11/29/2024 Unspecified atrial fibrillation (ICD-10 - I48.91) 12/17/2024 Elevated LFTs (ICD-10 - R79.89) 11/29/2024 Morbid (severe) obesity due to excess calories (ICD-10 - E66.01) 01/23/2025 Morbid (severe) obesity due to excess calories (ICD-10 - E66.01) continue on weight loss journey and appetite control with DM2 treatment as well with ozempic. Improving 01/23/2025 Annual wellness visit (ICD-10 - Z00.00) AWV Instructions The patient's health risk assessment was reviewed during this visit. The patient's chart was reviewed and updated See scanned images from paperwork reviewed and completed today The following topics have been addressed/discusse d at today's visit: All recommended screening services (as applicable) including infectious diseases, osteoporosis, diabetes and/or diabetes complications, glaucoma, cognitive impairment, hearing impairment, alcohol misuse, cancer screening Fall risk assessment Alcohol misuse Counseling (if applicable) Tobacco Cessation Counseling (if applicable) Immunizations Vital Signs End of Life Care Patient was provided with a written copy of the care plan from today's visit to include topics of Fall prevention, Nutrition, Physical activity, Tobacco-use cessation, Social engagement, Weight loss, Cognition. 08/20/2024 Chronic kidney disease, stage 3a (ICD-10 - N18.31) 08/12/2024 Shortness of breath (ICD-10 - R06.02) 07/10/2024 Other sites of candidiasis (ICD-10 - B37.89) 07/10/2024 Candidiasis, unspecified (ICD-10 - B37.9) 07/10/2024 Acute eczematoid otitis externa, left ear (ICD-10 - H60.542) 07/10/2024 Chronic sinusitis, unspecified (ICD-10 - J32.9) 07/10/2024 Dermatitis, unspecified (ICD-10 - L30.9) 07/10/2024 Trochanteric bursitis, right hip (ICD-10 - M70.61) 07/10/2024 Encounter for screening for other viral diseases (ICD-10 - Z11.59) 07/10/2024 Encounter for immunization (ICD-10 - Z23) 07/10/2024 COVID-19 (ICD-10 - U07.1) 10/10/2024 Solitary pulmonary nodule (ICD-10 - R91.1) 09/25/2024 Solitary pulmonary nodule (ICD-10 - R91.1) 08/09/2024 Morbid (severe) obesity due to excess calories (ICD-10 - E66.01) 08/09/2024 Essential (primary) hypertension (ICD-10 - I10) 08/09/2024 Unspecified atrial fibrillation (ICD-10 - I48.91) 08/09/2024 Acute on chronic diastolic (congestive) heart failure (ICD-10 - I50.33) 08/09/2024 Pneumonia, unspecified organism (ICD-10 - J18.9) 08/09/2024 Acute respiratory failure with hypoxia (ICD-10 - J96.01) 08/09/2024 Acute kidney failure, unspecified (ICD-10 - N17.9) 08/09/2024 Abnormal levels of other serum enzymes (ICD-10 - R74.8) 08/09/2024 Solitary pulmonary nodule (ICD-10 - R91.1) 10/16/2024 Low back pain (ICD-10 - M54.5) 10/16/2024 Pain in thoracic spine (ICD-10 - M54.6) 10/16/2024 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) 10/16/2024 Strain of muscle and tendon of front wall of thorax, initial encounter (ICD-10 - S29.011A) 09/23/2024 Morbid (severe) obesity due to excess calories (ICD-10 - E66.01) 09/23/2024 Left bundle-branch block, unspecified (ICD-10 - I44.7) 09/23/2024 Paroxysmal atrial fibrillation (ICD-10 - I48.0) 09/23/2024 Chronic diastolic (congestive) heart failure (ICD-10 - I50.32) 09/23/2024 Scoliosis, unspecified (ICD-10 - M41.9) 09/23/2024 Chest pain, unspecified (ICD-10 - R07.9) 09/23/2024 Strain of muscle and tendon of front wall of thorax, initial encounter (ICD-10 - S29.011A) 09/23/2024 Strain of muscle, fascia and tendon of lower back, initial encounter (ICD-10 - S39.012A) 09/23/2024 Chronic kidney disease, stage 3 unspecified (ICD-10 - N18.30) 09/16/2024 Essential (primary) hypertension (ICD-10 - I10) 09/16/2024 Abnormal levels of other serum enzymes (ICD-10 - R74.8) 08/27/2024 Encounter for immunization (ICD-10 - Z23) 08/02/2024 Hypokalemia (ICD-10 - E87.6) 08/02/2024 Chronic diastolic (congestive) heart failure (ICD-10 - I50.32) 08/02/2024 Dyspnea, unspecified (ICD-10 - R06.00) 08/02/2024 Chronic kidney disease, stage 3a (ICD-10 - N18.31) 07/31/2024 Morbid (severe) obesity due to excess calories (ICD-10 - E66.01) 07/31/2024 Hypokalemia (ICD-10 - E87.6) 07/31/2024 Unspecified atrial fibrillation (ICD-10 - I48.91) 07/31/2024 Acute systolic (congestive) heart failure (ICD-10 - I50.21) 07/31/2024 Pneumonia, unspecified organism (ICD-10 - J18.9) 01/23/2025 Body mass index [BMI] 37.0-37.9, adult (ICD-10 - Z68.37) as above, keep losing weight 11/29/2024 Essential (primary) hypertension (ICD-10 - I10) 11/29/2024 Prediabetes (ICD-10 - R73.03) 01/23/2025 Obesity, class 2 (ICD-10 - E66.812) working on weight loss 01/23/2025 Paroxysmal atrial fibrillation (ICD-10 - I48.0) f/u with cardio, currently on anticoag and doing well 11/29/2024 Sleep apnea, unspecified (ICD-10 - G47.30) 01/23/2025 Chronic diastolic (congestive) heart failure (ICD-10 - I50.32) stable on medications. Hospitalized in the last year for CHF but better now. 11/29/2024 Pain in thoracic spine (ICD-10 - M54.6) 01/23/2025 Sleep apnea, unspecified (ICD-10 - G47.30) wears cpap and should continue 11/29/2024 Scoliosis, unspecified (ICD-10 - M41.9) 01/23/2025 Thoracic spinal stenosis (ICD-10 - M48.04) get injections from pain management. 11/29/2024 Thoracic spinal stenosis (ICD-10 - M48.04) 11/29/2024 Prostate cancer screening (ICD-10 - Z12.5) 01/23/2025 Bariatric surgery status (ICD-10 - Z98.84) routine monitoring of labs noted given Hx of bariatric surgery 01/23/2025 Chronic renal impairment, stage 2 (mild) (ICD-10 - N18.2) stage 2 is mild, keep hydrated, improved from previous in the last year when BP was high as well. 01/23/2025 Type 2 diabetes mellitus with diabetic chronic kidney disease (ICD-10 - E11.22) well controlled. Dx dates back many years with no evidence of elevated HBA1C but prediabetes level was noted even without medication. Pt was reported to be DM2. 01/23/2025 Chronic kidney disease, stage 2 (mild) (ICD-10 - N18.2) keep hydrated, avoid nsaids for bariatric reasons s/p surgery and CKD as well. 01/23/2025 Essential (primary) hypertension (ICD-10 - I10) BP controlled currently, no changes to medicine recommended. 11/29/2024 Other Indigestion and reflux - Indigestion and reflux may be exacerbated by ozempic, especially with high-fat or sugary foods. History of gastric bypass surgery contributes to symptoms. - Continue monitoring diet to avoid high-fat and sugary foods. Consider alternatives if ozempic exacerbates symptoms. Severe osteoarthritis and spinal stenosis - Severe osteoarthritis with disc bulges causing mild central canal stenosis and nerve pinching, leading to chronic mid-spinal pain and muscle spasms. - Referral to pain management for steroid injection in the back. Patient is willing to try the steroid injection and prefers the [place] location for pain management. Consider physical therapy after starting injections. Weight management and diabetes - Weight loss of 25 pounds since last summer, currently on ozempic 1 mg for weight management and prediabetes. - Continue ozempic, monitor insurance coverage for alternatives like trulicity or mounjaro. Plan for labs next week to check kidney function and A1C. Consider [facility] if needed. - Risks and side effects: Potential muscle wasting due to reduced intake. Muscle pain - Muscle pain possibly related to spinal issues. - Refill muscle relaxer prescription. Appointments - Referral to pain management at [place] for steroid injection in the back. - Plan to return next week for lab work, including kidney function and A1C tests. 01/23/2025 Other Back Pain/ Thoracic spine stenosis and lumbar disease. - Back pain with discomfort, receiving steroid injections with some initial relief. - Follow-up appointment with a physician's chiropractic assistant in two weeks to assess further relief and determine the need for additional injections. Weight Management - Weight stable with fluctuations; patient on Ozempic for weight management and listed as diabetic. - Increase Ozempic dosage to 2 mg as per weight loss doctor's recommendation. Follow-up appointment with weight loss doctor on February 16, 2025. Hearing Concerns - Difficulty hearing in noisy environments. - Monitor symptoms and consider a hearing test if symptoms worsen. Pt wants to wait on hearing test. Plan Of Treatment Pending Test Test Name Order Date CT Scan : Chest without contrast 025 Next Appt Details Provider Name:Dr. Marielos burgess, 08/11/2025 03:30:00 PM, [address], [place], [address], [id number] Provider Name:Dr. Marielos burgess, 01/22/2026 10:30:00 AM, [address], [place], [address], [id number] Insurance Providers Payer Name Payer Address Payer Phone Subscriber Number Group Number Insured Name Patient Relationship to Insured Coverage Start Date Coverage End Date NGS Medicare RHC [address] [place] [phone] [id number] Gregory Jennings Self - patient is the insured 3 [employer] [address] [place] [address] [id number] DickGregory Self - patient is the insured 3 [facility] Medicare B [address] [place] [address] [id number] Gregory Jennings Self - patient is the insured 3 Medical (General) History Surgical History Surgery Date(Month/Year) [email or web address] Arthroscopy ,notes : Right knee x2 colonoscopy ,notes : Polyp's removed - positive for Tubular adenoma repeat in 3 years 01/2024 thumb surgery ,notes : bilateral 2010 Gastric Bypass 2004 Exploratory laparotomy with lysis of adhesions ,notes : repair of internal hernia 04/08/2019 Bowel obstruction removal 03/2019 Ablation 06/18/2018 Hernia repair ,notes : redone 10/03/23 a t BJ 06/2020
--- OUTSIDE RECORDS SUMMARY | 2025-06-19 11:16 | XMS_ITS | Encounter Summary ---
Author Organization [facility] Address [address] [facility] [address] [place] [address] Phone Care Team Providers Care Flask Carrier Name Role Phone Marielos Gonzalez MD Primary Care Provider Melissa Nichole MD Unavailable [phone] Encounter Details Date Type Department Care Team (Latest Contact Info) Description 10/21/2020 Orders Only [facility] Scanning, Provider Social History Tobacco Use Types Packs/Day Years Used Date Smoking Tobacco: Never Smokeless Tobacco: Never Alcohol Use Standard Drinks/Week Comments No 0 (1 standard drink = 0.6 oz pur e alcohol) Sex and Gender Information Value Date Recorded Sex Assigned at Not on file 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 Gender Identity Male 03/29/2022 4:39 AM CDT Sexual Orientation Straight 07/02/2021 12 :35 PM CDT documented as of this encounter Plan of Treatment Not on file documented as of this encounter Procedures Procedure Name Priority Date/Time Associated Diagnosis Comments SCAN - LABS 10/21/2020 CARDIOLOGY DOCUMENT SCAN 10/21/2020 documented in this encounter Results * SCAN - LABS (10/21/2020) us Provider Scanning Edited Result - Final * SCAN - CARDIOLOGY (10/21/2020) Anatomical Region Laterality Modality Other us Provider Scanning [facility] CARDIAC SERVICES PROCEDURES Edited Result - Final documented in this encounter Visit Diagnoses Not on filedocumented in this encounter Additional Health Concerns Infection Onset Date Last Indicated Resolved Time COVID: Suspected 08/03/2024 08/03/2024 08/03/2024 6:32 PM CDT COVID: Suspected 08/04/2024 08/04/2024 08/04/2024 1:09 AM CDT documented as of this encounter Care Teams Flask Carrier Relationship Specialty Start Date End Date Marielos Gonzalez MD [address] [place] [address] PCP - General Family Medicine 07/19/18 Melissa Nichole MD [id number] [place] [address] Consulting Physician General Surgery 07/08/22 documented as of this encounter
--- OUTSIDE RECORDS SUMMARY | 2025-06-19 11:16 | XMS_ITS | Encounter Summary ---
Author Organization [facility] Address [address] [facility] [address] [place] [address] Phone Care Team Providers Care Dietary Aide Teacher Name Role Phone Marielos Gonzalez MD Primary Care Provider Melissa Nichole MD Unavailable [phone] Encounter Details Date Type Department Care Team (Latest Contact Info) Description 05/08/2020 Orders Only [facility] Scanning, Provider Social History Tobacco Use Types Packs/Day Years Used Date Smoking Tobacco: Never Smokeless Tobacco: Never Alcohol Use Standard Drinks/Week Comments No 0 (1 standard drink = 0.6 oz pur e alcohol) Sex and Gender Information Value Date Recorded Sex Assigned at Not on file 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 Gender Identity Male 03/29/2022 4:39 AM CDT Sexual Orientation Straight 07/02/2021 12 :35 PM CDT documented as of this encounter Progress Notes * María Elena Marinelli MD - 05/08/2020 11:59 PM CDT reviewed documented in this encounter Plan of Treatment Not on file documented as of this encounter Procedures Procedure Name Priority Date/Time Associated Diagnosis Comments SCAN - LABS 05/08/2020 CARDIOLOGY DOCUMENT SCAN 05/08/2020 documented in this encounter Results * SCAN - LABS (05/08/2020) us Provider Scanning Final Result * SCAN - CARDIOLOGY (05/08/2020) Anatomical Region Laterality Modality Other us Provider Scanning CV CARDIAC SERVICES PROCEDURES Final Result documented in this encounter Visit Diagnoses Not on filedocumented in this encounter Additional Health Concerns Infection Onset Date Last Indicated Resolved Time COVID: Suspected 08/03/2024 08/03/2024 08/03/2024 6:32 PM CDT COVID: Suspected 08/04/2024 08/04/2024 08/04/2024 1:09 AM CDT documented as of this encounter Care Teams Dietary Aide Teacher Relationship Specialty Start Date End Date Marielos Gonzalez MD [address] [place] [address] PCP - General Family Medicine 07/19/18 Melissa Nichole MD [id number] [place] [address] Consulting Physician General Surgery 07/08/22 documented as of this encounter
--- OUTSIDE RECORDS SUMMARY | 2025-06-19 11:16 | XMS_ITS | Referral Summary ---
Author Organization [address] Address [address] [place] [address] Care Team Providers Care Axle Polisher Name Role Phone Marielos Gonzalez MD Primary Care Provider Melissa Nichole MD Unavailable [phone] Encounters Date Type Department Care Team Description 06/19/2025 11:15 AM CDT Procedure visit [facility] Cardiology [address] [place] [address] Preop examination 06/07/2025 Orders Only [facility] Metabolic Weight Management [address] [facility] Medical Office Building [address], [address] [place] [address] Vida Ni MD 05/28/2025 Telephone [facility] Cardiology [facility] 8th [place] [address] [place] [phone] María Elena Marinelli MD 05/28/2025 9:00 AM CDT Office Visit [facility] Cardiology [facility] 8th [place] [address] [place] [address] María Elena Marinelli MD Primary hypertension (Primary Dx); Chronic heart failure with preserved ejection fraction (HCC); Paroxysmal atrial fibrillation (HCC) 05/13/2025 Orders Only [facility] Metabolic Weight Management [address] [place] [address] Office [address], [address] [place] [address] Sandy Hurt, ICU RN Obstructive sleep apnea syndrome 05/09/2025 Telephone [facility] Metabolic Weight Management [address] [place] [address] Office [address] [place] [phone] Sandy Hurt, ICU RN Prior Auth (Zepbound pen-injectors) 05/01/2025 Results Follow-Up [facility] Cardiology [address] [place] [place] [address] Office [facility] [address] [place] [phone] Radha Paige NP ECG 12 lead 05/01/2025 8:30 AM CDT Office Visit [facility] Cardiology [address] [place] [place] [address] Office [facility] [address] [place] [phone] Radha Paige NP High risk medication use (Primary Dx); Chronic heart failure with preserved ejection fraction (HCC) 04/29/2025 1:40 PM CDT Lab [facility] [address] [place] [address] Type 2 diabetes mellitus without complication, without long-term current use of insulin (HCC); Class 3 obesity with alveolar hypoventilation, serious comorbidity, and body mass index (BMI) of 45.0 to 49.9 in adult (HCC); Other specified intestinal malabsorption; Bariatric surgery status 04/29/2025 1:00 PM CDT Office Visit [facility] Metabolic Weight Management [address] [place] [address] Office [facility] [address], [address] [place] [phone] Vida Ni MD Weight loss counseling, encounter for (Primary Dx); Obstructive sleep apnea syndrome; Type 2 diabetes mellitus without complication, without long-term current use of insulin (HCC); Class 3 obesity with alveolar hypoventilation, serious comorbidity, and body mass index (BMI) of 45.0 to 49.9 in adult (HCC); Bariatric surgery status; Other specified intestinal malabsorption from Last 3 Months Allergies Active Allergy Reactions Criticality Noted Date Comments Iodinated Contrast Media Hives,Itching Medium 06/15/20 18 Medications finasteride (PROSCAR) 5 mg tablet TAKE 1 TABLET BY MOUTH EVERY DAY 30 tablet 5 02/13/20 18 Active ferrous sulfate (IRON ORAL)Indication s:supplement Take 65 mg by mouth nightly Active b complex vitamins capsuleIndicati ons:Vitamin Deficiency Prevention Take 1 capsule by mouth nightly Active gabapentin (NEURONTIN) 100 mg capsuleIndicati ons:Neuropathic Pain Take 2 capsules (200 mg total) by mouth nightly 03/21/20 22 Active loratadine (CLARITIN) 10 mg tablet Take 1 tablet by mouth once daily 90 tablet 08/01/20 22 Active Additional Information Patient taking differently: As needed, Reported on 05/28/2025 amLODIPine (NORVASC) 5 mg tabletIndicatio ns:hypertension Take 1 tablet (5 mg total) by mouth every morning 09/30/20 22 Active dexlansoprazole (DEXILANT) 60 mg capsuleIndicati ons:Stress Ulcer Prophylaxis,Regan atment of Non-Bleeding Gastric Disorder Take 1 capsule (60 mg total) by mouth every morning Active rivaroxaban (Xarelto) 20 mg tabletIndicatio ns:atrial fibrillation Take 1 tablet (20 mg total) by mouth nightly Restart on 10/07/23 10/07/20 23 Active potassium chloride ER 20 mEq CR tabletIndicatio ns:hyperkalemia Take 2 tablets (40 mEq total) by mouth 2 (two) times a day 120 tablet 11 12/27/19 24 Active Additional Information Patient taking differently: 20 mEqoral 2 times daily, Indications: hyperkalemia, Reported on 05/28/2025 empagliflozin (JARDIANCE) 25 mg tablet Take 1 tablet (25 mg total) by mouth daily Active spironolactone (ALDACTONE) 25 mg tablet TAKE 1 TABLET (25 MG TOTAL) BY MOUTH DAILY 90 tablet 2 10/15/20 24 Active blood-glucose meter (JumpTimeuch Ultra2 Meter) misc ; Duration: 0 08/22/20 22 Active cholecalciferol (VITAMIN D-3) 5,000 unit tablet Active dofetilide (TIKOSYN) 500 mcg capsule TAKE 1 CAPSULE (500 MCG TOTAL) BY MOUTH 2 (TWO) TIMES A DAY 180 capsule 04/29/20 25 Active olmesartan (BENICAR) 20 mg tablet TAKE 1 TABLET (20 MG TOTAL) BY MOUTH DAILY 90 tablet 3 04/30/20 25 Active cyclobenzaprine (FLEXERIL) 5 mg tablet 1 tablet Orally every night at bedtime; Duration: 30 days Active lidocaine (LIDODERM) 5 % TAKE 1 patch TOPICAL EVERY DAY (MAY WEAR UP TO 12HOURS.); Duration: 30 Active tirzepatide, weight loss, (Zepbound) 7.5 mg/0.5 mL pen injector Inject 0.5 mL (7.5 mg total) under the skin every 7 days 2 mL 06/07/20 25 Active cyanocobalamin (Vitamin B-12) 100 mcg tabletIndicatio ns:Prevention of Vitamin B12 Deficiency Take 10 tablets (1,000 mcg total) by mouth nightly 2024 Discontinued(P atient Reported) tirzepatide, weight loss, (Zepbound) 5 mg/0.5 mL pen injectorIndicat ions:obstructiv e sleep apnea syndrome,RDI 32.3 Inject 0.5 mL (5 mg total) under the skin every 7 days 2 mL 2 05/13/20 25 2024 Discontinued Active Problems Problem Noted Date Diagnosed Date Class 3 obesity with alveola r hypoventilation, serious comorbidity, and body mass index (BMI) of 45.0 to 49.9 in adult 12/02/2024 Assessment & Plan (02/14/2025 10:06 AM CDT): Patient's initial BMI was 48; this has improved to 34 through medical management Assessment & Plan (01/15/2025 7:25 AM DISPATCH MACHINE RUNNER): Patient's initial BMI was 48; this has improved to 36 through medical management Assessment & Plan (12/02/2024 10:02 AM DISPATCH MACHINE RUNNER): Reviewed most recent labs. Continue low carb, low glycemic diet. Silverio is currently on Ozempic. Continue medication at current dose. May consider increasing ozempic further in the future if no continued improvement. increase physical activity, water, and protein (eat protein first, veggies, fruits, starchy veggies, legumes, grains) Increase to 60-80+ fl oz daily Increase protein intake to 70-90g daily Try to increase intentional physical activity and add in some strength training (weights, resistance bands, yoga, pilates) Reviewed importance of adequate protein intake. Reviewed recommendation/goal of >/= 150 minutes/week moderate intensity aerobic exercise. Body mass index 45.0-49.9, adult 12/02/2024 Assessment & Plan (12/02/2024 10:03 AM DISPATCH MACHINE RUNNER): Patient's highest BMI was 48.3 ; initial BMI was 37.77; this has improved to 35.61 through medical management Encounter for exercise counseling 12/02/2024 Assessment & Plan (12/02/2024 7:30 AM DISPATCH MACHINE RUNNER): I counseled the patient on exercise: Recommend 36 min. cardio daily. Based on availiable data on the secondary prevention of coronary heart disease, stroke and prediabetes, physical activity is potentially as active as many drug interventions.Primitivo Turcios: BMJ 2013 [id number]:[id number];08/2013; Diabetes Care, Volume 35, Oct 2012. Reviewed recommendation/goal of >/= 150 minutes/week moderate intensity aerobic exercise. Discussed need for weightbearing exercise in order to promote muscle gain and burning fat. Elevated LFTs 08/04/2024 Assessment & Plan (08/06/2024 10:44 AM CDT): Mildly elevated LFTS. No abdominal tenderness. Has lymphocytosis -? Viral infection? Alternatively could consider congestive hepatopathy or metabolic liver disease. CT non con chest noting features of hepatic fibrosis with possible degree of portal HTN given splenomegaly. -Treat acute on chronic cHF -negative viral hepatitis panel -improving with diuresis, possible congestive hepatopathy -consider OP RUQ US if liver enzymes do not continue to improve CAP (community acquired pneumonia) 08/03/2024 Assessment & Plan (08/06/2024 10:43 AM CDT): 10 days of non productive cough, dyspnea, orthopnea, initially 3 days of fevers. Labs consistent with lymphocytosis. CT with some nodules c/f infectious or inflammatory etiology. No recent tick bites or sick contacts. Ddx includes infectious (pneumonia, lymphocytosis, fevers) with acute on chronic CHF. RVP negative, + EBV as past infection. Blood cultures negative. No sputums obtained for pneumonia PCR -Continue CTX/Doxy for now, likely switch to PO cefdinir and doxy on discharge to complete 5 day course -EZPEP, nebs, bronchial hygiene, mucinex and tessalon PRN -Follow up lung nodule noted on CT in 6 months to document resolution Intermittent claudication 06/26/2024 Encounter for colonoscopy du e to history of adenomatous colonic polyps 12/18/2023 Dysphagia 12/18/2023 History of incisional hernia repair 10/18/2023 Incisional hernia of anterio r abdominal wall without obstruction or gangrene 10/03/2023 Recurrent incisional hernia with incarceration 0 06/29/2023 Weight loss counseling, encounter for 07/21/2022 Assessment & Plan (02/14/2025 10:11 AM CDT): Rx INDIVIDUALIZED FIRST LINE THERAPY PHYSICAL ACTIVITY: AEROBIC: Cardio: 36 minutes daily, Goal: 250min/week. DEEP RELAXATION EXERCISES: 1) Imagine Clarity barber 2) Head Space barber SLEEP: Good sleep hygiene discussed WATER: 1) Water: 80ounces/day 2) No soft drinks 3) No Juice 4) No Milk 5) Avoid alcoholic beverages 6) May have : Flavored tea (no artificial sweeteners or sugar) 7) May have: Green tea 8) May have: Coffee (maximum 1-2 cups of caffeinated per day, the rest decaf) FOOD/ NUTRITION: 1) Intervention: Personalized low glycemic foods Smaller Portion size Stop eating before you get full 2) Avoid: Eating out Added Salt Added Sugar, Dessert Processed food Ultra- Processed food PHARMACOTHERAPY: Continue current dose of Ozempic 2 mg weekly. Assessment & Plan (01/15/2025 9:14 AM DISPATCH MACHINE RUNNER): Rx INDIVIDUALIZED FIRST LINE THERAPY PHYSICAL ACTIVITY: AEROBIC: Cardio: 36 minutes daily, Goal: 250min/week. DEEP RELAXATION EXERCISES: 1) Imagine Clarity barber 2) Head Space barber SLEEP: Good sleep hygiene discussed WATER: 1) Water: 80ounces/day 2) No soft drinks 3) No Juice 4) No Milk 5) Avoid alcoholic beverages 6) May have : Flavored tea (no artificial sweeteners or sugar) 7) May have: Green tea 8) May have: Coffee (maximum 1-2 cups of caffeinated per day, the rest decaf) FOOD/ NUTRITION: 1) Intervention: Personalized low glycemic foods Smaller Portion size Stop eating before you get full 2) Avoid: Eating out Added Salt Added Sugar, Dessert Processed food Ultra- Processed food PHARMACOTHERAPY: INCREASE Ozempic This week: 1 mg PLUS 36 clicks on your current pen THEN: start using the new 2 mg dose pen, 2 mg every week Assessment & Plan (12/02/2024 7:30 AM DISPATCH MACHINE RUNNER): Reviewed importance of adequate protein intake. Reviewed recommendation/goal of >/= 150 minutes/week moderate intensity aerobic exercise. Discussed okay to not track food/calories but that if they start to struggle or are not losing weight, this is a useful tool to help refocus. Discussed limiting calorie intake with restaurant options including planning meals prior to ordering, eating only half the meal, and substituting certain items. Assessment & Plan (07/21/2022 10:39 AM CDT): Discussed that significant health benefits/risk reduction may be seen with even 5% weight loss. Discussed that weight loss will require calorie deficit. Calculated basal metabolic rate and estimated total energy expenditure; discussed 500-1000 kcal/day deficit to lose 1-2 lb per week. Asked to keep detailed food diary for at least 1 week and bring to next visit. Discussed setting SMART goals. Discussed relatively small, although significant, role of exercise in weight loss; greater importance in weight maintenance as shown in Look Ahead study and National Weight Control Registry. Discussed recommendation/goal for 150 minutes per week moderate-intensity aerobic exercise. Malabsorption 07/21/2022 Assessment & Plan (07/21/2022 6:59 PM CDT): Routine labs to evaluate for vitamin deficiencies in setting of intestinal malabsorption. Bariatric surgery status 07/21/2022 Assessment & Plan (12/02/2024 7:30 AM DISPATCH MACHINE RUNNER): S/P RYGB. Routine labs to evaluate for vitamin deficiencies in setting of intestinal malabsorption. Assessment & Plan (07/21/2022 6:59 PM CDT): Routine labs to evaluate for vitamin deficiencies in setting of intestinal malabsorption. Diabetes mellitus type 2 without retinopathy Overview (07/14/2022): Since 2021- on po meds (borderline prior) Assessment & Plan (08/22/2024 12:47 PM CDT): Since 2021- on po meds (borderline prior) Type II Diabetes without retinopathy both eyes (OU). Pt unable to be dilated today because of concerns with driving. BCVA 20/20 and undilated exam shows no evidence of background diabetic retinopathy or clinically significant macular edema. Encourage tight bs control per PCP. Assessment & Plan (07/20/2023 11:01 AM CDT): Since 2021- on po meds (borderline prior) Type II Diabetes without retinopathy both eyes (OU). Pt unable to be dilated today because of concerns with driving. BCVA 20/20 and undilated exam shows no evidence of background diabetic retinopathy or clinically significant macular edema. Encourage tight bs control per PCP. Assessment & Plan (07/21/2022 10:39 AM CDT): Labs. Reviewed available prior labs in chart and Care Everywhere. Discussed insulin resistance including effect on weight. Recommended low-carb, low-glycemic diet; choose whole grains and avoid more highly processed carbohydrates. Discussed potential benefits of this w/r/t gut microbiome. Referred to ADA and [place] [facility] websites for additional information on topics including glycemic index/carbohydrate choices, protein sources. Consider tirzepatide. Assessment & Plan (07/14/2022 11:12 AM CDT): Since 2021- on po meds (borderline prior) Type II Diabetes without retinopathy both eyes (OU). Pt unable to be dilated today because of concerns with driving. BCVA 20/20 and undilated exam shows no evidence of background diabetic retinopathy or clinically significant macular edema. Encourage tight bs control per PCP. Recommend DFE next visit. Jorge if changes in vision earlier. Abdominal pain 07/06/2022 Dyspnea on exertion 10/26/2021 Chronic heart failure with preserved ejection fr action 10/20/2021 Assessment & Plan (08/06/2024 10:42 AM CDT): Patient reports was prevsiously taking lasix but has been off since April then recently restarted at 20 mg then increased to 40 BID. He has been very active in recent months. 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 About 10 days had viral symptoms, fever and developed swelling, shortness of breath. Has elevated JVD and pro-bnp here. Likely combination of PNA and acute CHF. TTE with diastolic dysfunction. LVEF 64%. Similar to prior. -decrease lasix to 20 BID today, to continue on discharge -Monitor I/Os and weights -Continue Jardiance -Holding other antihypertensives, resume as able -further evaluation and management with cardiology and PCP FH: colon cancer 03/09/2021 Overview (03/09/2021): Added automatically from request for surgery [id number] Personal history of colonic polyps 03/09/2021 Overview (03/09/2021): Added automatically from request for surgery [id number] Incisional hernia, without obstruction or gangre ne 06/09/2020 Overview (06/09/2020): Added automatically from request for surgery [id number] High risk medication use 04/02/2020 Sinus bradycardia 07/21/2019 Age-related nuclear cataract of both eyes 2018 Assessment & Plan (08/22/2024 12:47 PM CDT): Not visually significant. Do not recommend surgery at this time. Continue to monitor. Patient to call if problems with activities of daily living. Note cylinder on refraction- May be interested in toric Assessment & Plan (07/20/2023 11:01 AM CDT): Not visually significant. Do not recommend surgery at this time. Continue to monitor. Patient to call if problems with activities of daily living. Note cylinder on refraction- May be interested in toric Assessment & Plan (07/14/2022 9:50 AM CDT): Not visually significant. Do not recommend surgery at this time. Continue to monitor. Patient to call if problems with activities of daily living. Brochure offered/given. Note cylinder on refraction- May be interested in toric Assessment & Plan (05/27/2020 1:36 PM CDT): Not visually significant. Do not recommend surgery at this time. Continue to monitor. Patient to call if problems with activities of daily living. Brochure offered/given. Note cylinder on refraction- May be interested in toric Assessment & Plan (05/29/2019 5:12 PM CDT): Not visually significant. Do not recommend surgery at this time. Continue to monitor. Patient to call if problems with activities of daily living. Brochure offered/given. Ok to follow up in 2 years. Call if issues. 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 Dry mouth 01/08/2018 Assessment & Plan (01/08/2018 2:14 PM DISPATCH MACHINE RUNNER): Likely due to diuretic. Will check A1c as well. Try cutting diuretic in 1/2 x 1 week to see if there is any improvement. Class 2 severe obesity with serious comorbidity and body mass index (BMI) of 38.0 to 38.9 in adult 08/14/2017 Overview (07/21/2022): S/P RYGB 2007 -- [facility]; Highest weight 290 lb prior to RYGB in 2007. Shravan weight 225 lb. Assessment & Plan (08/04/2024 2:42 AM CDT): BMI 38.16. RYGB 2008 c/b internal hernia s/p ex lap 2018 and incisional hernia s/p laparoscopic hernia repair with mesh (Dr. Burgos, 2019, and Dr. Roman 09/2023) c/b SBO 2021 treated conservatively. Now followed by Dr. Ni. On Ozempic 0.25 q Monday. -Continue home ozempic as outpatient per Dr. Ni. -Continue supplements. Assessment & Plan (07/21/2022 7:05 PM CDT): Obesity is improving. Plan: General weight loss/lifestyle modification strategies discussed (elicit support from others; identify saboteurs; non-food rewards; etc.)., Diet interventions: as noted.., Informal exercise measures discussed; e.g. taking stairs instead of elevator. and Regular aerobic exercise program discussed. More detailed recommendations pending review of labs, food record. Assessment & Plan (08/14/2017 3:44 PM CDT): Strongly encouraged further dietary modifications, increased cardiovascular activity if possible. He is at maximum tolerable dose of contrave, therefore continue as he is doing. Itching 10/03/2016 Overview (02/24/2017): Itching Arthralgia 10/03/2016 Overview (02/24/2017): Arthralgia, unspecified joint Impaired fasting glucose 12/14/2015 Overview (02/24/2017): IFG (impaired fasting glucose) Assessment & Plan (01/08/2018 2:12 PM DISPATCH MACHINE RUNNER): Check labs. Gained 10 pounds over last visit. Will try to work on diet / exercise. Assessment & Plan (08/14/2017 3:42 PM CDT): Reassess today Hypertension 09/07/2015 Overview (02/24/2017): Essential hypertension Assessment & Plan (08/06/2024 10:41 AM CDT): Normotensive currently. Medications different than stated from recent cardiology note and what he is actually taking. He reports he is taking Dofetilide 500mg BID, Olmesartan 20mg daily, Amlodipine 5mg daily, Aldactone 25mg daily, Jardiance 25mg daily. Recently (several days ago) restarted on lasix given dyspnea. -Continue dofetlide and jardiance -Held aldactone, olmesartan, and amlodipine for given soft BP. -continue to hold on discharge until further follow up with PCP for BP check Assessment & Plan (06/09/2020 12:50 PM CDT): Blood pressure is under excellent control. Monitor BP periodically. Continue current medical regimen along with lifestyle modifications. He is up-to-date on labs. Assessment & Plan (12/04/2019 12:39 PM DISPATCH MACHINE RUNNER): Patient currently on losartan 100mg daily, amlodipine 10mg daily and spironolactone 25mg daily Plan - Continue losartan 100mg daily, amlodipine 10mg daily and spironolactone 25mg daily Assessment & Plan (06/19/2018 9:00 AM CDT): Blood pressures monitored : 109/67-123/77-162/95 Continue home medications : amlodipine 10 mg daily , hctz 25 mg daily , spiroloactone 25 mg daily Assessment & Plan (06/18/2018 8:04 AM CDT): Doing well. Continue current meds and monitor. Encouraged on lifestyle, particularly diet. Assessment & Plan (01/08/2018 2:13 PM DISPATCH MACHINE RUNNER): Well controlled on current regimen. Will try to cut diuretic in half to see if there is any improvement in dry mouth symptoms. If so, may need to change olmesartan to Edarbi 80. Assessment & Plan (08/14/2017 3:41 PM CDT): Continue current regimen, at goal. Benign prostatic hyperplasia without lower urinary tract symptoms 09/07/2015 Overview (02/24/2017): Benign non-nodular prostatic hyperplasia with lower urinary tract symptoms Assessment & Plan (08/04/2024 2:42 AM CDT): Continue finasteride. Assessment & Plan (12/04/2019 12:39 PM DISPATCH MACHINE RUNNER): Patient currently taking tamsulosin 0.4mg daily, finasteride 5mg daily, and oxybutynin 5mg daily Plan - Continue home tamsulosin 0.4mg daily, finasteride 5mg daily, and oxybutynin 5mg daily Paroxysmal atrial fibrillation 09/07/2015 Overview (02/24/2017): Paroxysmal atrial fibrillation Assessment & Plan (08/06/2024 10:42 AM CDT): Followed by Cardiology. On Dofetilide and Xarelto. NSR and afib on telemetry, occasional PVC's -Continue Dofetilide and Xarelto -No acute events noted on telemetry -Monitor lytes and monitoring per Dofetlide orders - EKG with Qtc 422ms in the ED. Assessment & Plan (12/05/2019 11:49 AM DISPATCH MACHINE RUNNER): Pt reports fluttering sensation of the heart at least 3-4 times daily up to 8- 10 times daily and consistently at night 2 to 3 times per night waking him from sleep. He denies any chest pain but does note dyspnea on exertion going up 1 flight of stairs or roughly 300 ft on flat surface. Currently on xarelto 20mg daily. Reports never missing any doses of his xarelto. On the morning of 12/05, patient noted feeling well and not having had the fluttering sensation in his chest for the past 1.5 days. Plan - EP consult for dofetilide load, appreciate recs: - tikosyn 500mg bid x 6 doses (1st dose 12/02 evening) - EKG 2 hours after each dose - Converted to normal sinus rhythm - If in sinus, no DCCV needed. - Telemetry - Continue Xarelto 20 mg daily Assessment & Plan (06/19/2018 9:01 AM CDT): Post a-fib ablation . No problems overnight . Will plan to discharge today after EP team sees patient Continue on rivaroxaban 20 mg daily Discussed groin care and activity restrictions Follow up dr. Arriaga on 08/16/18 @ 11: 45 and if need or have questions prior to appointment will need to call ep office Sotalol 80 mg bid Assessment & Plan (06/18/2018 8:04 AM CDT): Scheduled for ablation with Dr. Arriaga on 06/18. Obstructive sleep apnea syndrome 09/07/2015 Overview (05/08/2025): Severe BARBRA on CPAP -- RDI 32.3 Assessment & Plan (05/08/2025 6:46 PM CDT): Excellent candidate for Zepbound. Will review sleep study. Assessment & Plan (02/14/2025 7:32 AM CDT): Continue current CPAP use Discussed role of weight loss in improving BARBRA sx. Assessment & Plan (01/15/2025 7:25 AM DISPATCH MACHINE RUNNER): Continue current CPAP use Discussed role of weight loss in improving BARBRA sx. Assessment & Plan (12/02/2024 7:29 AM DISPATCH MACHINE RUNNER): Continue current CPAP use Discussed role of weight loss in improving BARBRA sx. Assessment & Plan (08/04/2024 2:38 AM CDT): Has home CPAP machine. -BARBRA precautions -Continue nocturnal CPAP Assessment & Plan (07/21/2022 6:58 PM CDT): Discussed comorbidities associated with sleep apnea, including effects on weight, and stressed importance of adequate treatment if present. Continue CPAP. Low back pain with sciatica 09/07/2015 Overview (02/24/2017): Midline low back pain with sciatica, sciatica laterality unspecified Assessment & Plan (08/14/2017 3:43 PM CDT): Continue chiropractor treatments, acupuncture, massage therapy. History of colonic polyps 06/03/2014 Overview (02/24/2017): PRSNL HST COLONIC POLYPS Pure hyperglyceridemia 04/05/2014 Overview (02/23/2017): PURE HYPERGLYCERIDEMIA Assessment & Plan (05/14/2024 10:08 AM CDT): Labs. Assessment & Plan (08/14/2017 3:42 PM CDT): Continue dietary modification. Not on meds at the moment. Obesity, diabetes, and hypertension syndrome Overview (02/23/2017): DYSMETABOLIC SYNDROME X Family history of malignant neoplasm of gastrointestinal tract 04/05/2014 Overview (02/23/2017): FAMILY HX-GI MALIGNANCY Type 2 diabetes mellitus 04/05/2014 Overview (02/23/2017): DMII WO CMP NT ST UNCNTR Assessment & Plan (02/14/2025 7:32 AM CDT): Continue current weight loss plan, including following a low glycemic diet and close monitoring with routine fasting glucose and A1c lab work. A decrease of >15 % of body weight can improve blood glucose levels and result in remission of type II diabetes. David ROGEL, Hilton TA, Ba C, et al. Nutritional considerations with antiobesity medications. Obesity ([place]). 2023; 1-19. doi:[email or web address] Assessment & Plan (01/15/2025 7:25 AM DISPATCH MACHINE RUNNER): Continue current weight loss plan, including following a low glycemic diet and close monitoring with routine fasting glucose and A1c lab work. A decrease of >15 % of body weight can improve blood glucose levels and result in remission of type II diabetes. David PEBBLES, Hilton TA, Ba C, et al. Nutritional considerations with antiobesity medications. Obesity ([place]). 2023; 1-19. doi:[email or web address] Assessment & Plan (12/02/2024 11:13 AM DISPATCH MACHINE RUNNER): Pt will find records from outside provider with A1c results. Previously took insulin but has not needed since RYGB in 2007. Assessment & Plan (08/04/2024 2:35 AM CDT): Well controlled. A1c 04/2024 5.6. On Jardiance and Ozempic. -Continue Jardiance -Continue Ozempic as outpatient -SSI while inpatient Epigastric pain 04/05/2014 Overview (02/23/2017): ABDMNAL PAIN EPIGASTRIC Resolved Problems Problem Noted Date Diagnosed Date Resolved Date Cough 08/04/2024 08/05/2024 Acute on chronic respiratory failure 08/04/2024 08/05/2024 Assessment & Plan (08/04/2024 3:43 PM CDT): No O2 at baseline Continue 2L O2 BMI 40.0-44.9, adult 08/14/2017 022 Overview (08/14/2017): BMI Follow-up includes: bmi done today. Assessment & Plan (06/19/2018 8:58 AM CDT): BMI indicates morbid obesity would recommend weight loss Assessment & Plan (01/08/2018 1:39 PM DISPATCH MACHINE RUNNER): BMI Follow-up includes: nutrition counseling, exercise counseling and bmi done today. Assessment & Plan (08/14/2017 3:41 PM CDT): Discussed the importance of a healthy diet such as the Mediterranean diet or DASH diet. Discussed the importance of regular exercise. Gastroesophageal reflux disease 04/05/2014 05/02/2019 Overview (02/24/2017): ESOPHAGEAL REFLUX Immunizations Immunization Administration Dates Next Due Influenza, Quadrivalent, Split, Intramuscular Influenza, Trivalent, Recomb inant, Egg Free, Preservative Free, Antibiotic Free, IM (FLUBLOK) 09/07/2015 Influenza, Unspecified 09/20/2021 Pneumococcal Polysaccharide PPV23 11/20/2012 Tdap 2014 Social History Tobacco Use Types Packs/Day Years Used Date Smoking Tobacco: Never Passive Smoke Exposure: Never Smokeless Tobacco: Never Tobacco Cessation:Counseling Given: Not Answered Alcohol Use Standard Drinks/Week Comments No 0 (1 standard drink = 0.6 oz pur e alcohol) [facility] Utilities Answer Date Recorded In the past 12 months has th e [address], gas, oil, or water company threatened to shut off services in your home? No 08/05/2024 AUDIT-C Answer Date Recorded Q1: How often do you have a drink containing alcohol? Never 02/07/2024 Q2: How many drinks containi ng alcohol do you have on a typical day when you are drinking? Patient does not drink Q3: How often do you have si x or more drinks on one occasion? Never 02/07/2024 Overall Financial Resource Strain (CARDIA) Answe r Date Recorded How hard is it for you to pa y for the very basics like food, housing, medical care, and heating? Not hard at all 08/05/2024 Hunger Vital Sign Answer Date Recorded Within the past 12 months, y ou worried that your food would run out before you got the money to buy more. Never true 08/05/20 Within the past 12 months, t he food you bought just didn't last and you didn't have money to get more. Never true 08/05/2024 PRAPARE - Transportation Answer Date Re corded In the past 12 months, has l ack of transportation kept you from medical appointments or from getting medications? No 07/21 In the past 12 months, has l ack of transportation kept you from meetings, work, or from getting things needed for daily living? No 08/05/2024 Housing Stability Vital Sign Answer Gustavo e Recorded In the last 12 months, was t here a time when you were not able to pay the mortgage or rent on time? No 08/05/2024 In the past 12 months, how m any times have you moved where you were living? 1 08/05/2024 At any time in the past 12 m [facility], were you homeless or living in a group home (including now)? No 08/05/2024 Personal Safety Answer Date Recorded Have you ever been in or are you currently in a harmful physical or emotional relationship or is someone making you feel afraid or unsafe? Denies 08/03/2024 Sex and Gender Information Value Date Recorded Sex Assigned at Not on file Legal Sex Male 12:50 PM DISPATCH MACHINE RUNNER Gender Identity Male 03/29/2022 4:39 AM CDT Sexual Orientation Straight 07/02/2021 12 :35 PM CDT Last Filed Vital Signs Vital Sign Reading Time Taken Comments Blood Pressure 126/76 05/28/2025 8:51 AM CDT Pulse 57 05/28/2025 8:51 AM CDT Temperature 36.5 C (97.7 F) 08/06/2024 7:20 AM CDT Respiratory Rate 18 08/16/2024 4:07 PM CDT Oxygen Saturation 97% 05/28/2025 8:51 AM CDT Inhaled Oxygen Concentration - - Weight 95.6 kg (210 lb 12.8 oz) 05/28/2025 8:51 AM CDT Height 165.1 cm (5' 5) 05/28/2025 8:51 AM CDT Body Mass Index 35.08 05/28/2025 8:51 AM CDT Plan of Treatment Not on file Medical Devices Implanted Type Area Tuna Purse Seiner Device Identifier Shelf Expiration Date Model / Serial / Lot [employer]/C R Bard [id number] Ventralight St Sepra 10x8in Uncoated Monofilament Lightweight - [id number] Implanted:Qty: 1 on 07/09/2020 by Kate Burgos MD at [facility] Mesh N/A: Abdomen [employer] Bard [id number] 04/16/2021 [id number] / / [id number] [employer]/C R Bard [id number] Bard [id number] Monofilament Soft Lightweight Low Profile Square - [id number] Implanted:Qty: 1 on 10/03/2023 by Bandar Roman MD at [facility] Mesh N/A: Abdomen [employer]/C [employer] Bard [id number] 03/17/2027 [id number] / / [id number] Procedures Procedure Name Priority Date/Time Associated Diagnosis Comments ECG 12-LEAD Routine 05/01/2025 8:21 AM CDT High risk medication use Chronic heart failure with preserved ejection fraction (HCC) EGFR Routine 04/29/2025 1:57 PM CDT Type 2 diabetes mellitus without complication, without long-term current use of insulin (HCC) Class 3 obesity with alveolar hypoventilation, serious comorbidity, and body mass index (BMI) of 45.0 to 49.9 in adult (HCC) Other specified intestinal malabsorption Bariatric surgery status THYROID FUNCTION CASCADE Routine 04/29/2025 1:57 PM CDT Type 2 diabetes mellitus without complication, without long-term current use of insulin (HCC) Class 3 obesity with alveolar hypoventilation, serious comorbidity, and body mass index (BMI) of 45.0 to 49.9 in adult (HCC) Other specified intestinal malabsorption Bariatric surgery status VITAMIN B1 Routine 04/29/2025 1:57 PM CDT Type 2 diabetes mellitus without complication, without long-term current use of insulin (HCC) Class 3 obesity with alveolar hypoventilation, serious comorbidity, and body mass index (BMI) of 45.0 to 49.9 in adult ([facility]) Other specified intestinal malabsorption Bariatric surgery status VITAMIN B12 Routine 04/29/2025 1:57 PM CDT Type 2 diabetes mellitus without complication, without long-term current use of insulin (HCC) Class 3 obesity with alveolar hypoventilation, serious comorbidity, and body mass index (BMI) of 45.0 to 49.9 in adult (HCC) Other specified intestinal malabsorption Bariatric surgery status VITAMIN D 25 HYDROXY Routine 04/29/2025 1:57 PM CDT Type 2 diabetes mellitus without complication, without long-term current use of insulin (HCC) Class 3 obesity with alveolar hypoventilation, serious comorbidity, and body mass index (BMI) of 45.0 to 49.9 in adult (HCC) Other specified intestinal malabsorption Bariatric surgery status LIPID PANEL Routine 04/29/2025 1:57 PM CDT Type 2 diabetes mellitus without complication, without long-term current use of insulin ([facility]) Class 3 obesity with alveolar hypoventilation, serious comorbidity, and body mass index (BMI) of 45.0 to 49.9 in adult ([facility]) Other specified intestinal malabsorption Bariatric surgery status IRON PROFILE W/ IBC Routine 04/29/2025 1 :57 PM CDT Type 2 diabetes mellitus without complication, without long-term current use of insulin (HCC) Class 3 obesity with alveolar hypoventilation, serious comorbidity, and body mass index (BMI) of 45.0 to 49.9 in adult ([facility]) Other specified intestinal malabsorption Bariatric surgery status HEMOGLOBIN A1C Routine 04/29/2025 1:57 PM CDT Type 2 diabetes mellitus without complication, without long-term current use of insulin ([facility]) Class 3 obesity with alveolar hypoventilation, serious comorbidity, and body mass index (BMI) of 45.0 to 49.9 in adult ([facility]) Other specified intestinal malabsorption Bariatric surgery status FOLATE Routine 04/29/2025 1:57 PM CDT Type 2 diabetes mellitus without complication, without long-term current use of insulin ([facility]) Class 3 obesity with alveolar hypoventilation, serious comorbidity, and body mass index (BMI) of 45.0 to 49.9 in adult ([facility]) Other specified intestinal malabsorption Bariatric surgery status FERRITIN Routine 04/29/2025 1:57 PM CDT Type 2 diabetes mellitus without complication, without long-term current use of insulin ([facility]) Class 3 obesity with alveolar hypoventilation, serious comorbidity, and body mass index (BMI) of 45.0 to 49.9 in adult ([facility]) Other specified intestinal malabsorption Bariatric surgery status COPPER, SERUM Routine 04/29/2025 1:57 PM CDT Type 2 diabetes mellitus without complication, without long-term current use of insulin ([facility]) Class 3 obesity with alveolar hypoventilation, serious comorbidity, and body mass index (BMI) of 45.0 to 49.9 in adult (HCC) Other specified intestinal malabsorption Bariatric surgery status COMPREHENSIVE METABOLIC PANEL Routine 04/29/2025 1:57 PM CDT Type 2 diabetes mellitus without complication, without long-term current use of insulin (HCC) Class 3 obesity with alveolar hypoventilation, serious comorbidity, and body mass index (BMI) of 45.0 to 49.9 in adult (HCC) Other specified intestinal malabsorption Bariatric surgery status CBC WITHOUT DIFFERENTIAL Routine 04/29/2025 1:57 PM CDT Type 2 diabetes mellitus without complication, without long-term current use of insulin (HCC) Class 3 obesity with alveolar hypoventilation, serious comorbidity, and body mass index (BMI) of 45.0 to 49.9 in adult (HCC) Other specified intestinal malabsorption Bariatric surgery status HEPATITIS PANEL, ACUTE Routine 4:33 AM CDT COLONOSCOPY 02/07/2024 10:36 AM CDT from Last 3 Months or Most Recently Relevant to Health Maintenance Results * ECG 12 lead (05/01/2025 8:21 AM CDT) Radha Paige NP ECG ORDERABLES Edited R esult - Final * eGFR (04/29/2025 1:57 PM CDT) eGFR 80 >=60 mL/min/1. 73 m2 Comment: Interpretive Data Reference Interval Normal >/= 90 mL/min/1.73m2 Mildly decreased* 60 - 89 mL/min/1.73m2 Mildly to moderately decreased 45 - 59 mL/min/1.73m2 Moderately to severely decreased 30 - 44 mL/min/1.73m2 Severely decreased 15 - 29 mL/min/1.73m2 Kidney Failure < 15 mL/min/1.73m2 *Relative to young adult level Estimated glomerular filtration rate is determined by the 2020 CKD-EPI equation recommended by the National Kidney Foundation (A Unifying Approach to GFR Estimation: Recommendations of the NKF-ASK Task Force on Reassessing the Inclusion of Race in Diagnosing Kidney Disease, THUN 2020). The CKD-EPI equation should not be used for patients with unstable renal function and has not been validated in children and those over 70. Current interpretive data was last reviewed 2021. Blood 04/29/2025 1:57 PM CDT 04/29/2025 2:45 PM CDT Vida Ni MD LAB BLOOD ORDERABLES Fin al Result Performing Organization Address City/[facility] Co de Phone Number [facility] [address] [address] TechnologyJefferson Regional [place] [address] * Thyroid Function [place] (04/29/2025 1:57 PM CDT) TSH 1.89 0.30 - 4.20 mcIUnit/mL Blood 04/29/2025 1:57 PM CDT 04/29/2025 2:45 PM CDT Vida Ni MD LAB BLOOD ORDERABLES Fin al Result Performing Organization Address [facility] de Phone Number [facility] [phone] [email or web address] Regional [place] [address] * Iron profile w/ IBC (04/29/2025 1:57 PM CDT) Iron 80 50 - 150 mcg/dL Comment:Testing performed by : [facility], [address] [place] [address]., [id number] TIBC 388 250 - 400 mcg/dL CERNER BJW[facility] Comment:Testing performed by : [facility], [address] [place] [address]., [id number] Transferrin saturation 21 20 - 50 % [facility]ER [facility] Comment:Testing performed by : [facility], [address] [place] [address]., [id number] Blood 04/29/2025 1:57 PM CDT 04/29/2025 10:09 PM CDT Vida Ni MD LAB BLOOD ORDERABLES Fin al Result Performing Organization Address City/[facility] Co de Phone Number FARRAH SALASCH [phone] [employer]. [facility] [place] [address] * (ABNORMAL) Copper, serum (04/29/2025 1:57 PM CDT) Pathologist [facility] Copper 39(L) 73 - 129 mcg/dL [facility] Comment: ADDITIONAL INFORMATION This test was developed and its performance characteristics determined by [facility] in a manner consistent with CLIA requirements. This test has not been cleared or approved by the U.S. Food and Drug Administration. Test Performed by: [facility] [address] [employer] Motor Assembler: Nhan Anderson Ph.D.; CLIA# [id number] Blood 04/29/2025 1:57 PM CDT 04/29/2025 2:45 PM CDT Vida Ni MD LAB BLOOD ORDERABLES Fin al Result Performing Organization Address [facility] de Phone Number FARRAH YUANWCH [phone] [employer]. [place] [address] [place] ref [facility] * Vitamin D 25 hydroxy (04/29/2025 1:57 PM CDT) [facility] Vitamin D 25-OH 47 30 - 80 ng/mL Blood 04/29/2025 1:57 PM CDT 04/29/2025 2:45 PM CDT Vida Ni MD LAB BLOOD ORDERABLES Fin al Result Performing Organization Address City/[facility] Co de Phone Number F[facility]H BJ[facility] [address] [employer]. Department [place] [place] [address] * (ABNORMAL) CBC without differential (04/29/2025 1:57 PM CDT) [facility] WBC 9.47 3.80 - 9.90 K/cumm Hgb 14.8 13.0 - 17.5 g/dL [facility] Hct 44.4 38.9 - 50.3 % [facility] Y[facility]AN[facility] Plt 249 150 - 400 K/cumm [facility] MPV 8.5(L) 9.1 - 12.3 fL [facility] RBC 4.52 4.30 - 5.80 M/cumm [facility] MCV 98.2(H) 81.3 - 96.4 fL [facility] MCH 32.7 27.1 - 33.3 pg [facility] MCHC 33.3 32.3 - 35.7 g/dL [facility] RDW CV 13.2 11.1 - 14.9 % [facility] RDW SD 46.8 35.7 - 48.1 fL [facility] Y[facility]ANW NRBC abs 0.00 0.00 - 0.01 K/cumm [facility] Blood 04/29/2025 1:57 PM CDT 04/29/2025 2:45 PM CDT Vida Ni MD LAB BLOOD ORDERABLES Fin al Result [facility] SALAS[facility] [address] [facility]. Department of [employer] [place], [place] [id number] * Vitamin B1 (04/29/2025 1:57 PM CDT) [facility] Thiamine (Vit B1) 164 70 - 180 nmol/L [facility] Comment: ADDITIONAL INFORMATION This test was developed and its performance characteristics determined by [facility] in a manner consistent with CLIA requirements. This test has not been cleared or approved by the U.S. Food and Drug Administration. Test Performed by: [facility] [address] [place] [id number] [employer]er: Nhan Anderson Ph.D.; [facility]# [id number] Blood 04/29/2025 1:57 PM CDT 04/29/2025 2:45 PM CDT Vida Ni MD LAB BLOOD ORDERABLES Fin al Result Performing Organization Address [facility] Co de Phone Number [facility] [phone] [facility] [place] [address] [place] ref Lab * Hemoglobin A1c (04/29/2025 1:57 PM CDT) Pathologist [facility] Hgb A1C 4.5 4.0 - 5.6 % Estimated Average Glucose 82 mg/dL FARRAH SALAS Comment: The ADA recommends reporting an estimated Average Glucose (eAG) with all Hemoglobin A1c results using the equation derived from a study of 507 normal and diabetic adults. Minority populations were underrepresented and children were not included. (Diabetes Care 31:7666-7894, 2008). The eAG is not equivalent to a fasting glucose. Blood 04/29/2025 1:57 PM CDT 04/29/2025 2:45 PM CDT Vida Ni MD LAB BLOOD ORDERABLES Fin al Result Performing Organization Address [facility] Co de Phone Number [facility] [address] [facility]. [facility] [employer] [place] [address] * Folate (04/29/2025 1:57 PM CDT) [facility] Folic acid 19.8 >=5.0 ng/mL Comment:Testing performed by : [facility], [address] [facility], [place]., [address] Blood 04/29/2025 1:57 PM CDT 04/29/2025 10:09 PM CDT Vida Ni MD LAB BLOOD ORDERABLES Fin al Result Performing Organization Address City/[facility] Co de Phone Number [facility] [phone] [employer] [employer]. [facility] [place] [place] [address] * Ferritin (04/29/2025 1:57 PM CDT) Pathologist [facility] Ferritin 205 30 - 400 ng/mL Comment:Testing performed by : [facility], [address] [place] [address]., [id number] Blood 04/29/2025 1:57 PM CDT 04/29/2025 10:09 PM CDT Vida Ni MD LAB BLOOD ORDERABLES Fin al Result Performing Organization Address City/[facility]/ZIP Co de Phone Number FARRAH YUANCH [address] [employer]. Department [employer] [place], [place] [id number] * (ABNORMAL) Vitamin B12 (04/29/2025 1:57 PM CDT) Pathologist [facility] Vitamin B12 3,722(H) 230 - 1,250 pg/mL Comment:Testing performed by : [facility], [address] [place] [address], [place]., [address] Blood 04/29/2025 1:57 PM CDT 04/29/2025 10:09 PM CDT Vida Ni MD LAB BLOOD ORDERABLES Fin al Result Performing Organization Address City/[facility]/ZIP Co de Phone Number F[facility]RAH YUANWCH [address] [facility] [place] [address] * (ABNORMAL) Lipid panel (04/29/2025 1:57 PM CDT) Pathologist [facility] Cholesterol 122 30 - 199 mg/dL Comment: Interpretive Data Ages < or = 19 years Acceptable: <170 mg/dL Borderline high: 170-199 mg/dL High: >or= 200 mg/dL Ages > or = 20 years Desirable: <200 mg/dL Borderline high: 200-239 mg/dL High: >or= 240 mg/dL Literature References: 1. Expert Panel on Integrated Guidelines for Cardiovascular Health and Risk Reduction in Children and Adolescents. Pediatrics 2011;128:S213 2. NCEP Expert Panel. Circulation 2004;110:227 Current Interpretive Data was last revised on 2018. Triglycerides 188(H) <=149 mg/dL FARRAH ASENCIO Comment: Interpretive Data Ages < or = 9 years Acceptable: <75 mg/dL Borderline high: 75-99 mg/dL High: >or= 100 mg/dL Ages 10 to 20 years Acceptable: <90 mg/dL Borderline high: 90-129 mg/dL High: >or= 130 mg/dL Ages > or = 20 years Desirable: <150 mg/dL Borderline high: 150-199 mg/dL High: 200-499 mg/dL Very high: >or= 499 mg/dL Literature References: 1. Expert Panel on Integrated Guidelines for Cardiovascular Health and Risk Reduction in Children and Adolescents. Pediatrics 2011;128:S213 2. NCEP Expert Panel. Circulation 2004;110:227 Current Interpretive Data was last revised on 2018. HDL 34(L) >=40 mg/dL FARRAH ASENCIO Comment: Interpretive Data Ages < or = 19 years Acceptable: >45 mg/dL Borderline low: 40-45 mg/dL Low: <40 mg/dL Ages > or = 20 years Desirable: >or= 60 mg/dL Low: <40 mg/dL Literature References: 1. Expert Panel on Integrated Guidelines for Cardiovascular Health and Risk Reduction in Children and Adolescents. Pediatrics 2011;128:S213 2. NCEP Expert Panel. Circulation 2004;110:227 Current Interpretive Data was last revised on 2018. LDL, calculated 57 <=129 mg/dL FARRAH ASENCIO Comment: Interpretive Data Ages < or = 19 years Acceptable: <110 mg/dL Borderline high: 110-129 mg/dL High: >or= 130 mg/dL Ages > or = 20 years Optimal: <100 mg/dL Near optimal: 100-129 mg/dL Borderline high: 130-159 mg/dL High: >160 mg/dL Calculated using the Rossi LDL-C estimating equation. This equation was implemented on 2024. Prior to this date LDL-C was estimated using the Friedewald equation. Literature References: 1. Expert Panel on Integrated Guidelines for Cardiovascular Health and Risk Reduction in Children and Adolescents. Pediatrics 2011;128:S213 2. NCEP Expert Panel. Circulation 2004;110:227 3. Flo M et al. RUDDY Cardiol. 2020 March 20;5(5):540-548. doi: [email or web address] Current Interpretive Data was last revised on 2024. Non-HDL Cholesterol 88 mg/dL [facility] Comment: Interpretive Data Ages < or = 19 years Acceptable: <120 mg/dL Borderline high: 120-144 mg/dL High: >145 mg/dL Ages > or = 20 years When triglycerides are >200 mg/dL, Non-HDL cholesterol is a secondary target of therapy with treatment goals that are 30 mg/dL greater than the LDL cholesterol target. Literature References: 1. Expert Panel on Integrated Guidelines for Cardiovascular Health and Risk Reduction in Children and Adolescents. Pediatrics 2011;128:S213 2. NCEP Expert Panel. Circulation 2004;110:227 Current Interpretive Data was last revised on 2018. Chol/HDL ratio 4 [facility] Blood 04/29/2025 1:57 PM CDT 04/29/2025 2:45 PM CDT us Vida Ni MD LAB BLOOD ORDERABLES Fin al Result FARRAH ASENCIO [id number] [facility]. Department [place] [address] * Comprehensive metabolic panel (04/29/2025 1:57 PM CDT) [facility] Signature Sodium 137 135 - 145 mmol/L Potassium, pl 4.8 3.3 - 4.9 mmol/L [facility] Chloride 101 97 - 110 mmol/L [facility] CO2 22 22 - 32 mmol/L [facility] Anion gap 14 2 - 15 mmol/L [facility] BUN 21 6 - 25 mg/dL [facility] Creatinine 1.00 0.80 - 1.30 mg/dL [facility] Glucose 84 70 - 199 mg/dL [facility] Comment: Interpretive Data Fasting glucose >/= 126 mg/dl is diagnostic for diabetes. Fasting is defined as no caloric intake for at least 8 hours. Fasting glucose between 100 mg/dl to 125 mg/dl is diagnostic of prediabetes. In a patient with classic symptoms of hyperglycemia or hyperglycemic crisis, a random glucose >/= 200 mg/dl is diagnostic for diabetes. In the absence of unequivocal hyperglycemia, results should be confirmed by repeat testing. The classification and Diagnosis of Diabetes Diabetes Care 2021; 46: S19-S40. Current interpretive data was last revised 2022. Calcium 9.6 8.5 - 10.3 mg/dL [facility] Bilirubin, total 0.7 0.1 - 1.2 mg/dL [facility] Protein, pl 7.2 6.5 - 8.5 g/dL [facility] Albumin 4.7 3.5 - 5.0 g/dL [facility] Alk phos 92 40 - 130 Units/L [facility] ALT 47 7 - 55 Units/L [facility] AST 39 10 - 50 Units/L [facility] Comment:Hemolyzed; result ma y be falsely elevated. Blood 04/29/2025 1:57 PM CDT 04/29/2025 2:45 PM CDT us Vida Ni MD LAB BLOOD ORDERABLES Fin al Result FARRAH SALASCH [id number] [facility]. Department [place] [address] * Hepatitis panel, acute Blood (08/04/2024 4:33 AM CDT) Hep A IgM Nonreactive Nonreactive Comment: Interpretive Data: If Hep A IgM Ab is reported as Equivocal, a new sample should be drawn in two weeks for testing. Current interpretive data was last revised on 20. Testing performed by: [facility], [address] [place] [address], [place]., [id number] Hep B core IgM Nonreactive Nonreactive [facility] Comment: Interpretive Data If HepB Core IgM Ab is reported as Equivocal, a new sample should be drawn in two weeks for testing. Current interpretive data was last revised on 20. Testing performed by: [facility], [address] [place] [address]., [id number] Hep C Ab Nonreactive Nonreactive [facility] Comment: Interpretive Data Nonreactive: Antibodies to HCV not detected. Does NOT exclude the possibility of recent exposure to HCV. Equivocal: Equivocal for HCV antibodies. Supplemental molecular testing will be automatically performed to determine infection status in accordance with current CDC screening recommendations. Reactive: Positive for HCV antibodies. This may represent current or past HCV infection. Supplemental molecular testing will be automatically performed to determine current infection status in accordance with current CDC screening recommendations. Interpretive data was last revised on 2020. Testing performed by: [facility], [address] [place] [address]., [id number] HepBsAg Nonreactive Nonreactive [facility] AS[facility] Comment:Testing performed by : [facility], [address] [place] [address]., [id number] Blood 08/04/2024 4:33 AM CDT 08/04/2024 7:34 AM CDT oTy Mcfarlane MD LAB MICROBIOLOGY - GENERA L ORDERABLES Final Result FARRAH YUANWCH [address] [facility]. Department of Laboratories [place], [place] [id number] * Colonoscopy (02/07/2024 10:36 AM CDT) Anatomical Region Laterality Modality Other Narrative Procedure Note Early, Maria Alejandra Zuleta MD - 02/07/2024 10:36 AM CDT ENDOSCOPY LAB Patient Name: Silverio Chaudhry Procedure Date: 02/07/2024 10:36 AM Date of : 1950 Admit Type: Outpatient Age: 73 Gender: Male Attending MD: Maria Alejandra Parker M.D. Room: [facility] ENDOSCOPY ROOM 01 Note Status: Finalized Procedure: Colonoscopy Indications: Surveillance: History of piecemeal removal adenomaon last colonoscopy (< 3 yrs), Last colonoscopy:September 2022 Providers: Maria Alejandra Parker M.D. Referring MD: Marielos Gonzalez MD Medicines: Monitored Anesthesia Care Complications: No immediate complications. Estimated Blood Loss: Estimated blood loss: none. Procedure: Pre-Anesthesia Assessment: - Immediately prior to administration ofmedications, the patient was re-assessed for adequacy to receive sedatives. The benefits, risks and alternatives of theprocedure and sedation were discussed and informed consentwas obtained. All questions were answered. Please referto the signed informed consent document in the medical record. The scope was passed under direct vision.The [id number] was introduced through the anusand advanced to the cecum, identified by appendiceal orifice and ileocecal valve. The patient toleratedthe procedure well. The quality of the bowelpreparation was evaluated using the BBPS ([employer] BowelPreparation Scale) with scores of: Right Colon = 2 (minoramount of residual staining, small fragments of stooland/or opaque liquid, but mucosa seen well), TransverseColon = 2 (minor amount of residual staining, small fragments of stool and/or opaque liquid, but mucosa seen well) and Left Colon = 2 (minor amount of residual staining, small fragments of stool and/or opaque liquid, but mucosa seen well). The totalBBPS score equals 6. The quality of the bowelpreparation was good. Bowel prep was administered using a split dose. [employer] was utilized during theprocedure to aid in polyp detection. The colonoscopy was technically difficult and complex due tosignificant looping and the patient's body habitus. Successful completion of the procedure was aided by applying abdominal pressure. A colowrap was used but was unhelpful. Findings: An 8 mm polyp was found in the cecum. The polyp was sessile. Thepolyp was removed with a cold snare. Resection and retrieval werecomplete. A 5 mm polyp was found in the ascending colon. The polyp was sessile. The polyp was removed with a cold snare. Resection and retrieval were complete. Impression: - One 8 mm polyp in the cecum, removed with a cold snare. Resected and retrieved. - One 5 mm polyp in the ascending colon, removedwith a cold snare. Resected and retrieved. Recommendation: - Repeat colonoscopy for surveillance based on pathology results. If no advanced features, 3years. - . Attending Participation: I personally performed the entire procedure. Electronically signed by Maria Alejandra Parker MD Maria Alejandra Parker M.D. 02/07/2024 12:02:22 PM Number of Addenda: 0 Note Initiated On: 02/07/2024 10:36 AM Maria Alejandra Parker MD ENDOSCOPY PROCEDURES Final Res ult from Last 3 Months or Most Recently Relevant to Health Maintenance Insurance MEDICARE [facility] [id number] [facility]ICARE [facility] [id number] MEDICARE [facility] [id number] MEDICARE [facility] [id number] MEDICARE Advance Directives For more information, please contact: [phone] * Full Code (Latest Code Status on File) Date Activated Date Inactivated Comments 08/04/2024 1:04 AM 08/06/2024 3:44 PM * Full Code Date Activated Date Inactivated Comments 02/07/2024 9:57 AM 02/07/2024 4:24 PM * Full Code Date Activated Date Inactivated Comments 10/03/2023 4:13 PM 10/06/2023 3:31 PM * Full Code Date Activated Date Inactivated Comments 10/18/2022 9:33 AM 10/18/2022 4:02 PM * Full Code Date Activated Date Inactivated Comments 08/15/2022 9:20 AM 08/15/2022 4:31 PM Care Teams Axle Polisher Relationship Specialty Start Date End Date Marielos Gonzalez MD [address] [place] [address] PCP - General Family Medicine 07/19/18 Melissa Nichole MD [id number] [place] [address] Consulting Physician General Surgery 07/08/22
--- OUTSIDE RECORDS SUMMARY | 2025-06-19 11:16 | XMS_ITS | Clinical Summary ---
Author Organization [address] Address [address] [place] [phone] Care Team Providers Care Glove Boarder Name Role Phone Marielos Gonzalez MD Primary Care Provider Melissa Nichole MD Unavailable [phone] Allergies Active Allergy Reactions Criticality Noted Date [...] tablet 2 10/15/20 24 Active blood-glucose meter (OneTouch Ultra2 Meter) [facility] ; Duration: 0 08/22/20 22 Active cholecalciferol [...] management Assessment & Plan (01/15/2025 7:25 AM GROUND SERVICE EQUIPMENT MECHANIC): Patient's initial BMI was 48; this has improved to 36 through medical management Assessment & Plan (12/02/2024 10:02 AM GROUND SERVICE EQUIPMENT MECHANIC): Reviewed most recent labs. Continue low carb, [...] 12/02/2024 Assessment & Plan (12/02/2024 10:03 AM GROUND SERVICE EQUIPMENT MECHANIC): Patient's highest BMI was 48.3 ; initial BMI was 37.77; this has improved to 35.61 through medical management Encounter for exercise counseling 12/02/2024 Assessment & Plan (12/02/2024 7:30 AM GROUND SERVICE EQUIPMENT MECHANIC): I counseled the patient on exercise: Recommend 36 min. cardio daily. Based on availiable data on the secondary prevention of coronary heart disease, stroke and prediabetes, physical activity is potentially as active as many drug interventions.KarolinaRoseandrzej: BMJ 2013 [id number];08/2013; Diabetes Care, Volume 35, [...] weekly. Assessment & Plan (01/15/2025 9:14 AM GROUND SERVICE EQUIPMENT MECHANIC): Rx INDIVIDUALIZED FIRST LINE THERAPY PHYSICAL ACTIVITY: [...] week Assessment & Plan (12/02/2024 7:30 AM GROUND SERVICE EQUIPMENT MECHANIC): Reviewed importance of adequate protein intake. Reviewed [...] 07/21/2022 Assessment & Plan (12/02/2024 7:30 AM GROUND SERVICE EQUIPMENT MECHANIC): S/P RYGB. Routine labs to evaluate for [...] w/r/t gut microbiome. 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 Dry mouth 01/08/2018 Assessment & Plan (01/08/2018 2:14 PM GROUND SERVICE EQUIPMENT MECHANIC): Likely due to diuretic. Will check A1c as well. Try cutting diuretic in 1/2 x 1 week to see if there is any improvement. Class 2 severe obesity with serious comorbidity and body mass index (BMI) of 38.0 to 38.9 in adult 08/14/2017 Overview (07/21/2022): S/P RYGB 2007 -- [facility]; Highest weight 290 lb prior to RYGB [...] glucose) Assessment & Plan (01/08/2018 2:12 PM GROUND SERVICE EQUIPMENT MECHANIC): Check labs. Gained 10 pounds over last [...] labs. Assessment & Plan (12/04/2019 12:39 PM GROUND SERVICE EQUIPMENT MECHANIC): Patient currently on losartan 100mg daily, amlodipine [...] diet. Assessment & Plan (01/08/2018 2:13 PM GROUND SERVICE EQUIPMENT MECHANIC): Well controlled on current regimen. Will try [...] finasteride. Assessment & Plan (12/04/2019 12:39 PM GROUND SERVICE EQUIPMENT MECHANIC): Patient currently taking tamsulosin 0.4mg daily, finasteride [...] ED. Assessment & Plan (12/05/2019 11:49 AM GROUND SERVICE EQUIPMENT MECHANIC): Pt reports fluttering sensation of the heart [...] sx. Assessment & Plan (01/15/2025 7:25 AM GROUND SERVICE EQUIPMENT MECHANIC): Continue current CPAP use Discussed role of weight loss in improving BARBRA sx. Assessment & Plan (12/02/2024 7:29 AM GROUND SERVICE EQUIPMENT MECHANIC): Continue current CPAP use Discussed role of [...] result in remission of type II diabetes. Hilton Hernandez JP, Tewksbury C, et al. Nutritional considerations with antiobesity medications. Obesity ([place]). 2023; 1-19. doi:[email or web address]/hugo.69637 Assessment & Plan (01/15/2025 7:25 AM GROUND SERVICE EQUIPMENT MECHANIC): Continue current weight loss plan, including following a low glycemic diet and close monitoring with routine fasting glucose and A1c lab work. A decrease of >15 % of body weight can improve blood glucose levels and result in remission of type II diabetes. Hilton Hernandez JP, Tewksbury C, et al. Nutritional considerations with antiobesity medications. Obesity ([place]). 2023; 1-19. doi:10.1002/hugo.18360 Assessment & Plan (12/02/2024 11:13 AM GROUND SERVICE EQUIPMENT MECHANIC): Pt will find records from outside provider [...] loss Assessment & Plan (01/08/2018 1:39 PM GROUND SERVICE EQUIPMENT MECHANIC): BMI Follow-up includes: nutrition counseling, exercise counseling and bmi done today. Assessment & Plan (08/14/2017 3:41 PM CDT): Discussed the importance of a healthy diet such as the Mediterranean diet or DASH diet. Discussed the importance of regular exercise. Gastroesophageal reflux disease 04/05/2014 05/02/2019 Overview (02/24/2017): ESOPHAGEAL REFLUX Encounters Date Type Department Care Team Description 06/19/2025 11:15 AM CDT Procedure visit [facility] Cardiology [address] [place] [address] Preop examination 06/07/2025 Orders Only [facility] Metabolic Weight Management [address] [facility] Medical Office Building [address], [address] [place] [phone] Vida Ni MD 05/28/2025 9:00 AM CDT Office Visit [facility] Cardiology [address] [place] [address] 8th [place] [address] [place] [phone] María Elena Marinelli MD Primary hypertension (Primary Dx); Chronic heart failure with preserved ejection fraction (HCC); Paroxysmal atrial fibrillation (HCC) 05/28/2025 Telephone [facility] Cardiology [address] [place] [address] 8th [place] [address] [place] [address] María Elena Marinelli MD 05/13/2025 Orders Only [facility] Metabolic Weight Management [facility] Office Building [address], [address] [place] [phone] Sandy Hurt, BIOMEDICAL ENGINEERING PROFESSOR Obstructive sleep apnea syndrome 05/09/2025 Telephone [facility] Metabolic Weight Management [facility] Office Building [address], [address] [place] [phone] Sandy Hurt, BIOMEDICAL ENGINEERING PROFESSOR Prior Auth (Zepbound pen-injectors) 05/01/2025 8:30 AM CDT Office Visit [facility] Cardiology [address] [place] [address] Office [facility] [address] [place] [phone] Radha Paige NP High risk medication use (Primary Dx); Chronic heart failure with preserved ejection fraction (HCC) 05/01/2025 Results Follow-Up [facility] Cardiology [address] [place] [address] [address] [place] [address] Radha Paige NP ECG 12 lead 04/29/2025 1:40 PM CDT Lab [facility] [address] [address] [place] [address] Type 2 diabetes mellitus without complication, without long-term current use of insulin (HCC); Class 3 obesity with alveolar hypoventilation, serious comorbidity, and body mass index (BMI) of 45.0 to 49.9 in adult (HCC); Other specified intestinal malabsorption; Bariatric surgery status 04/29/2025 1:00 PM CDT Office Visit [facility] Metabolic Weight Management [facility] Office [facility] [address], [address] [place] [phone] Vida Ni MD Weight loss counseling, encounter for (Primary Dx); Obstructive sleep apnea syndrome; Type 2 diabetes mellitus without complication, without long-term current use of insulin (HCC); Class 3 obesity with alveolar hypoventilation, serious comorbidity, and body mass index (BMI) of 45.0 to 49.9 in adult (HCC); Bariatric surgery status; Other specified intestinal malabsorption from Last 3 Months Immunizations Immunization Administration Dates Next Due Influenza, Quadrivalent, Split, Intramuscular Influenza, Trivalent, Recomb inant, Egg Free, Preservative Free, Antibiotic Free, IM (FLUBLOK) 09/07/2015 Influenza, Unspecified 09/20/2021 Pneumococcal Polysaccharide PPV23 11/20/2012 Tdap 2014 Surgical History Surgery Date Site/Laterality Comments CHOLECYSTECTOMY 11/20/2005 - 11/19/2006 GASTRIC BYPASS 11/20/2008 - 11/19/2009 HAND SURGERY 11/20/2010 - 11/19/2011 Bilateral KNEE SURGERY 11/20/1999 - 11/19/2000 ABDOMINAL ADHESION SURGERY SMALL INTESTINE SURGERY 04/08/2019 SBO, internal hernia CARDIAC ELECTROPHYSIOLOGY MAPPING AND ABLATION 06/18/2018 INCISIONAL HERNIA REPAIR 06/20/2020 - 07/20/2020 CARDIAC CATHETERIZATION INCISIONAL HERNIA REPAIR 10/03/2023 Open AWR with bilateral TAR COLONOSCOPY POLYPECTOMY Medical History Medical History Date Comments Atrial fibrillation (HCC) s/p ca rdioversion 2012 GERD (gastroesophageal reflux disease) LBBB (left bundle branch block) Cataract BARBRA on CPAP + Sleep Study 06 02 BPH (benign prostatic hyperplasia) Pulmonary nodule Hypertension Type 2 diabetes mellitus (HCC) p atient denies dx of DM Family History Medical History Relation Name Comments Colon cancer Father Cancer, colon; Other Other 1 No family histo ry of Colon polyps; Other Other 2 No family histo ry of Crohn's disease; Other Other 3 Brother No family histo ry of Ulcerative colitis; Anesthesia problems Neg Hx Glaucoma Neg Hx Macular degeneration Neg Hx Relation Name Status Comments Brother Heart Styents Father (Age 72) HTN Mother (Age 90) CVA, HTN Other 1 Other 2 Other 3 Brother Alive Social History Tobacco Use Types Packs/Day Years Used Date Smoking Tobacco: Never Passive Smoke Exposure: Never Smokeless Tobacco: Never Tobacco Cessation:Counseling Given: Not Answered Alcohol Use Standard Drinks/Week Comments No 0 (1 standard drink = 0.6 oz pur e alcohol) [facility] Utilities Answer Date Recorded In the past 12 months has e [employer], gas, oil, or water [employer] threatened to shut off services in your [...] money to buy more. Never true 08/05/20 24 Within the past 12 months, t he [...] any time in the past 12 [facility], were you homeless or living in a alf (including now)? No 08/05/2024 Personal Safety Answer Date Recorded Have you ever been in or are you currently in a harmful physical or emotional relationship or is someone making you feel afraid or unsafe? Denies 08/03/2024 Sex and Gender Information Value Date Recorded Sex Assigned at Not on file Legal Sex Male 12:50 PM GROUND SERVICE EQUIPMENT MECHANIC Gender Identity Male 03/29/2022 4:39 AM CDT Sexual Orientation Straight 07/02/2021 12 :35 PM CDT Obstetrics History Last Filed Vital Signs Vital Sign Reading [...] 05/28/2025 8:51 AM CDT Plan of Treatment Health Maintenance Due Date Last Done Comments Albumin Creatinine Ratio, Urine 1952 Depression Screening 1950 Foot Exam 1952 Hepatitis B Screening 1970 Well Visit 65+ 2017 Pneumococcal vaccine 65+ (3 of 3 - PCV20 or PCV21) 02/28/2023 02/28/2018, 10/26/2015, 08/20/2014, Additional history exists Covid-19 Vaccine (6 - 2023-2 5 season) 2024 08/27/2024, 09/15/2023, 10/12/2021, Additional history exists Influenza Vaccine (#1) 2025 , 09/20/2021, 09/05/2019, Additional history exists Fall Risk Assessment 08/06/2025 08/06/2024 Dilated Eye Exam 08/22/2025 08/22/2024, , 05/29/2019 Hemoglobin A1C 10/29/2025 04/29/2025, 04/21, 09/18/2023, Additional history exists Lipid Panel 04/29/2026 04/29/2025, 04/21, 09/07/2022, Additional history exists eGFR 04/29/2026 04/29/2025, 01/19, 08/06/2024, Additional history exists DTaP/Tdap/Td Vaccine (3 - Td or Tdap) 02/29/2028 02/28/2018, 2014 Colon Cancer Screening-Colonoscopy 02/06/2034 02/07/2024, 10/18/2022, 04/11/2022, Additional history exists Zoster Vaccine Completed 12/16/2019, 09/05/2019 Colon Cancer Screening-CT Colonography Discontinued 02/07/2024, 10/18/2022, 04/11/2022, Additional history exists Colon Cancer Screening-DNA Stool Discontinued 02/07/2024, 10/18/2022, 04/11/2022, Additional history exists Colon Cancer Screening-FIT Discontinued 02/06, 10/18/2022, 04/11/2022, Additional history exists Colon Cancer Screening-Sigmoidoscopy Discontinued 02/07/2024, 10/18/2022, 04/11/2022, Additional history exists Hepatitis C Screening Completed 08/04/2024 Medical Devices Implanted Type Area Fast Food Delivery Driver Device Identifier Shelf Expiration Date Model / Serial / Lot [employer]/C R Bard [id number] Ventralight St Sepra 10x8in Uncoated Monofilament Lightweight - [id number] Implanted:Qty: 1 on 07/09/2020 by Kate Burgos MD at [facility] Mesh N/A: Abdomen [employer] [id number] 04/16/2021 [id number] / / [id number] [employer] Bard [id number] Bard [id number] Monofilament Soft Lightweight Low Profile Square - [id number] Implanted:Qty: 1 on 10/03/2023 by Bandar Roman MD at [facility] Mesh N/A: Abdomen [employer] [id number] 03/17/2027 [id number] / / [id number] Procedures Procedure Name Priority Date/Time Associated Diagnosis [...] complication, without long-term current use of insulin ([facility]) Class 3 obesity with alveolar hypoventilation, serious comorbidity, and body mass index (BMI) of 45.0 to 49.9 in adult ([facility]) Other specified intestinal malabsorption Bariatric surgery status VITAMIN B1 Routine 04/29/2025 1:57 PM CDT Type 2 diabetes mellitus without complication, without long-term current use of insulin ([facility]) Class 3 obesity with alveolar hypoventilation, serious comorbidity, and body mass index (BMI) of 45.0 to 49.9 in adult ([facility]) Other specified intestinal malabsorption Bariatric surgery status VITAMIN B12 Routine 04/29/2025 1:57 PM CDT Type 2 diabetes mellitus without complication, without long-term current use of insulin ([facility]) Class 3 obesity with alveolar hypoventilation, serious comorbidity, and body mass index (BMI) of 45.0 to 49.9 in adult ([facility]) Other specified intestinal malabsorption Bariatric surgery status VITAMIN D 25 HYDROXY Routine 04/29/2025 1:57 PM CDT Type 2 diabetes mellitus without complication, without long-term current use of insulin ([facility]) Class 3 obesity with alveolar hypoventilation, serious comorbidity, and body mass index (BMI) of 45.0 to 49.9 in adult ([facility]) Other specified intestinal malabsorption Bariatric surgery status LIPID PANEL Routine 04/29/2025 1:57 PM CDT Type 2 diabetes mellitus without complication, without long-term current use of insulin ([facility]) Class 3 obesity with alveolar hypoventilation, serious comorbidity, and body mass index (BMI) of 45.0 to 49.9 in adult ([facility]) Other specified intestinal malabsorption Bariatric surgery status IRON PROFILE W/ IBC Routine 04/29/2025 1 :57 PM CDT Type 2 diabetes mellitus without complication, without long-term current use of insulin ([facility]) Class 3 obesity with alveolar hypoventilation, serious comorbidity, and body mass index (BMI) of 45.0 to 49.9 in adult ([facility]) Other specified intestinal malabsorption Bariatric surgery status HEMOGLOBIN A1C Routine 04/29/2025 1:57 PM CDT Type 2 diabetes mellitus without complication, without long-term current use of insulin ([facility]) Class 3 obesity with alveolar hypoventilation, serious comorbidity, and body mass index (BMI) of 45.0 to 49.9 in adult ([facility]) Other specified intestinal malabsorption Bariatric surgery status FOLATE Routine 04/29/2025 1:57 PM CDT Type 2 diabetes mellitus without complication, without long-term current use of insulin ([facility]) Class 3 obesity with alveolar hypoventilation, serious comorbidity, and body mass index (BMI) of 45.0 to 49.9 in adult ([facility]) Other specified intestinal malabsorption Bariatric surgery status FERRITIN Routine 04/29/2025 1:57 PM CDT Type 2 diabetes mellitus without complication, without long-term current use of insulin ([facility]) Class 3 obesity with alveolar hypoventilation, serious comorbidity, and body mass index (BMI) of 45.0 to 49.9 in adult ([facility]) Other specified intestinal malabsorption Bariatric surgery status COPPER, SERUM Routine 04/29/2025 1:57 PM CDT Type 2 diabetes mellitus without complication, without long-term current use of insulin ([facility]) Class 3 obesity with alveolar hypoventilation, serious comorbidity, and body mass index (BMI) of 45.0 to 49.9 in adult ([facility]) Other specified intestinal malabsorption Bariatric surgery status COMPREHENSIVE METABOLIC PANEL Routine 04/29/2025 1:57 PM CDT Type 2 diabetes mellitus without complication, without long-term current use of insulin ([facility]) Class 3 obesity with alveolar hypoventilation, serious comorbidity, and body mass index (BMI) of 45.0 to 49.9 in adult ([facility]) Other specified intestinal malabsorption Bariatric surgery status CBC WITHOUT DIFFERENTIAL Routine 04/29/2025 1:57 PM CDT Type 2 diabetes mellitus without complication, without long-term current use of insulin ([facility]) Class 3 obesity with alveolar hypoventilation, serious comorbidity, and body mass index (BMI) of 45.0 to 49.9 in adult ([facility]) Other specified intestinal malabsorption Bariatric surgery status HEPATITIS PANEL, ACUTE Routine 4:33 AM CDT COLONOSCOPY 02/07/2024 10:36 AM CDT from Last 3 Months or Most Recently Relevant to Health Maintenance Results * ECG 12 lead (05/01/2025 8:21 AM CDT) us Radha Paige [address]HW[address] PATROL COMMANDER ECG ORDERABLES Edited R esult - Final [...] Inclusion of Race in Diagnosing Kidney Disease, JASN 202). The CKD-EPI equation should not be used for patients with unstable renal function and has not been validated in children and those over 70. Current interpretive data was last reviewed 2021. Blood 04/29/2025 1:57 PM CDT 04/29/2025 2:45 PM CDT us Vida Ni MD LAB BLOOD ORDERABLES Fin al Result [facility] [address] [facility]. Department of [place] [employer] [place], [place] [id number] * Thyroid Function [place] (04/29/2025 1:57 PM CDT) TSH 1.89 0.30 - 4.20 mcIUnit/mL Blood 04/29/2025 1:57 PM CDT 04/29/2025 2:45 PM CDT Vida Ni MD LAB BLOOD ORDERABLES Fin al Result Performing Organization Address [facility] Co de Phone Number [facility] [address] [facility] [place] [address] * Iron profile w/ IBC (04/29/2025 1:57 PM CDT) [facility] Iron 80 50 - 150 mcg/dL Comment:Testing performed by : [facility], [address] [place] [address]., [phone] TIBC 388 250 - 400 mcg/dL [facility] SALAS Comment:Testing performed by : [facility], [address] [place] [address]., [id number] Transferrin saturation 21 20 - 50 % [facility] Comment:Testing performed by : [facility], [address] [place] [address]., [phone] Blood 04/29/2025 1:57 PM CDT 04/29/2025 10:09 PM CDT Vida Ni MD LAB BLOOD ORDERABLES Fin al Result Performing Organization Address [facility] de Phone Number [facility] [id number] [facility] FacilityYadwire TechnologyBaptist Health [place] [address] * (ABNORMAL) Copper, serum (04/29/2025 1:57 PM CDT) [facility] Copper 39(L) 73 - 129 mcg/dL [place] [facility] Comment: ADDITIONAL INFORMATION This test was developed and its performance characteristics determined by [facility] in a manner consistent with CLIA requirements. This test has not been cleared or approved by the U.S. Food and Drug Administration. Test Performed by: [facility] [address] [place] [address] [employer] Art[employer] Repairer: Nhan Anderson Ph.D.; CLIA# [id number] Blood 04/29/2025 1:57 PM CDT 04/29/2025 2:45 PM CDT Vida Ni MD LAB BLOOD ORDERABLES Fin al Result Performing Organization Address [facility]/ZIP Co de Phone Number [facility] SALASCH [phone] [employer] [place] [address] [place] ref [facility] * Vitamin D 25 hydroxy (04/29/2025 1:57 PM CDT) Pathologist [facility] Vitamin D 25-OH 47 30 - 80 ng/mL Blood 04/29/2025 1:57 PM CDT 04/29/2025 2:45 PM CDT Vida Ni MD LAB BLOOD ORDERABLES Fin al Result Performing Organization Address [facility] de Phone Number [facility] [address] [employer] [place], [place] [phone] * (ABNORMAL) CBC without differential (04/29/2025 1:57 PM CDT) Pathologist [facility] WBC 9.47 3.80 - 9.90 K/cumm Hgb 14.8 13.0 - 17.5 g/dL [facility] Hct 44.4 38.9 - 50.3 % [facility] Plt 249 150 - 400 K/cumm [facility] BJW MPV 8.5(L) 9.1 - 12.3 fL [facility] RBC 4.52 4.30 - 5.80 M/cumm [facility] MCV 98.2(H) 81.3 - 96.4 fL [facility] MCH 32.7 27.1 - 33.3 pg [facility] MCHC 33.3 32.3 - 35.7 g/dL [facility] RDW CV 13.2 11.1 - 14.9 % [facility] RDW SD 46.8 35.7 - 48.[address] [facility] NRBC abs 0.00 0.00 - 0.01 K/cumm [facility] Blood 04/29/2025 1:57 PM CDT 04/29/2025 2:45 PM CDT Vida Ni MD LAB BLOOD ORDERABLES Fin al Result Performing Organization Address [facility] Co de Phone Number [facility] [phone] [employer] [facility] [place] [address] * Vitamin B1 (04/29/2025 1:57 PM CDT) Pathologist [facility] Thiamine (Vit B1) 164 70 - 180 nmol/L [place] [facility] Comment: ADDITIONAL INFORMATION This test was developed and its performance characteristics determined by [facility] in a manner consistent with CLIA requirements. This test has not been cleared or approved by the U.S. Food and Drug Administration. Test Performed by: [facility] [place] [id number] [employer] Repairer: Nhan Anderson Ph.D.; CLIA# [id number] Blood 04/29/2025 1:57 PM CDT 04/29/2025 2:45 PM CDT Vida Ni MD LAB BLOOD ORDERABLES Fin al Result Performing Organization Address [facility] de Phone Number [facility] [phone] [employer] [facility] [place] [address] [place] ref [facility] * Hemoglobin A1c (04/29/2025 1:57 PM CDT) Pathologist [facility] Hgb A1C 4.5 4.0 - 5.6 % Estimated Average Glucose 82 mg/dL [facility] Comment: The ADA recommends reporting an estimated Average Glucose (eAG) with all Hemoglobin A1c results using the equation derived from a study of 507 normal and diabetic adults. Minority populations were underrepresented and children were not included. (Diabetes Care 31:4842-3250, 2008). The eAG is not equivalent to a fasting glucose. Blood 04/29/2025 1:57 PM CDT 04/29/2025 2:45 PM CDT Vida Ni MD LAB BLOOD ORDERABLES Fin al Result Performing Organization Address City/[facility] Co de Phone Number [facility] [address] [employer]. [facility] [place] [address] * Folate (04/29/2025 1:57 PM CDT) Pathologist [facility] Folic acid 19.8 >=5.0 ng/mL Comment:Testing performed by : [facility], [address] [place] [address]., [id number] Blood 04/29/2025 1:57 PM CDT 04/29/2025 10:09 PM CDT Vida Ni MD LAB BLOOD ORDERABLES Fin al Result Performing Organization Address [facility] de Phone Number [facility] [address] [employer] [address] * Ferritin (04/29/2025 1:57 PM CDT) [facility] Ferritin 205 30 - 400 ng/mL Comment:Testing performed by : [facility], [address] [place] [address]., [id number] Blood 04/29/2025 1:57 PM CDT 04/29/2025 10:09 PM CDT Vida Ni MD LAB BLOOD ORDERABLES Fin al Result Performing Organization Address City/[facility] Co de Phone Number [facility] [address] [facility]. [place] [address] * (ABNORMAL) Vitamin B12 (04/29/2025 1:57 PM CDT) Vitamin B12 3,722(H) 230 - 1,250 pg/mL Comment:Testing performed by : [facility], [facility], [place]., [address] Blood 04/29/2025 1:57 PM CDT 04/29/2025 10:09 PM CDT us Vida Ni MD LAB BLOOD ORDERABLES Fin al Result [facility] [address] [facility]. [facility] [place] [address] * (ABNORMAL) Lipid panel (04/29/2025 1:57 PM CDT) Cholesterol 122 30 - 199 mg/dL Comment: [...] mg/dL High: >160 mg/dL Calculated using the Flo LDL-C estimating equation. This equation was implemented on 2024. Prior to this date LDL-C was estimated using the Friedewald equation. Literature References: 1. Expert Panel on Integrated Guidelines for Cardiovascular Health and Risk Reduction in Children and Adolescents. Pediatrics 2011;128:S213 2. NCEP Expert Panel. Circulation 2004;110:227 3. Flo Sanders et al. RUDDY Cardiol. 2019March 20;5(5):540-548. doi: 10.1001/jamacardio.2020.0013 Current Interpretive Data was last revised on 2024. Non-HDL Cholesterol 88 mg/dL [facility] Comment: Interpretive Data Ages [...] revised on 2018. Chol/HDL ratio 4 [facility] Blood 04/29/2025 1:57 PM CDT 04/29/2025 2:45 PM CDT us Vida Ni MD LAB BLOOD ORDERABLES Fin al Result [facility] [address] [facility]. [place] [address] * Comprehensive metabolic panel (04/29/2025 1:57 PM CDT) Sodium 137 135 - 145 mmol/L Potassium, pl 4.8 3.3 - 4.9 mmol/L [facility] Chloride 101 97 - 110 mmol/L [facility] CO2 22 22 - 32 mmol/L [facility] Anion gap 14 2 - 15 mmol/L [facility] BUN 21 6 - 25 mg/dL [facility] Creatinine 1.00 0.80 - 1.30 mg/dL [facility] Glucose 84 70 - 199 mg/dL [facility] Comment: Interpretive Data Fasting glucose >/= 126 [...] Alk phos 92 40 - 130 Units/L [facility] ALT 47 7 - 55 Units/L [facility] AST 39 10 - 50 Units/L [facility] Comment:Hemolyzed; result ma y be falsely elevated. Blood 04/29/2025 1:57 PM CDT 04/29/2025 2:45 PM CDT Vida Ni MD LAB BLOOD ORDERABLES Fin al Result [facility] [address] [facility]. [place] [address] * Hepatitis panel, acute Blood (08/04/2024 4:33 AM CDT) Hep A IgM Nonreactive Nonreactive Comment: Interpretive Data: If Hep A IgM Ab is reported as Equivocal, a new sample should be drawn in two weeks for testing. Current interpretive data was last revised on 20. Testing performed by: [facility], [address] [place] [address]., [id number] Hep B core IgM Nonreactive Nonreactive [facility] Comment: Interpretive Data If HepB Core IgM Ab is reported as Equivocal, a new sample should be drawn in two weeks for testing. Current interpretive data was last revised on 20. Testing performed by: [facility], [address] [place] [address]., [address] Hep C Ab Nonreactive Nonreactive [facility] Comment: Interpretive Data Nonreactive: Antibodies to HCV [...] last revised on 2020. Testing performed by: [facility], [address] [place] [address]., [address] HepBsAg Nonreactive Nonreactive [facility] Comment:Testing performed by : [facility], [facility], [place]., [address] Blood 08/04/2024 4:33 AM CDT 08/04/2024 7:34 AM CDT Toy Mcfarlane MD LAB MICROBIOLOGY - GENERA L ORDERABLES Final Result Performing Organization Address City/State/[facility] Co de Phone Number [facility] [address] [facility]. [place] [address] * Colonoscopy (02/07/2024 10:36 AM CDT) Anatomical Region Laterality Modality Other Narrative Procedure Note Maria Alejandra Parker MD - 02/07/2024 10:36 AM CDT ENDOSCOPY LAB Patient Name: Silverio Chaudhry Procedure Date: 02/07/2024 10:36 AM Date of : 1950 Admit Type: Outpatient Age: 73 Gender: Male Attending MD: Maria Alejandra Parker M.D. Room: [facility] ENDOSCOPY ROOM 01 Note Status: Finalized Procedure: [...] The scope was passed under direct vision.The [id number] was introduced through the anusand advanced to the cecum, identified by appendiceal orifice and ileocecal valve. The patient toleratedthe procedure well. The quality of the bowelpreparation was evaluated using the BBPS ([place] BowelPreparation Scale) with scores of: Right Colon [...] 0 Note Initiated On: 02/07/2024 10:36 AM us Maria Alejandra Parker MD ENDOSCOPY PROCEDURES Final Res ult from Last 3 Months or Most Recently Relevant to Health Maintenance Insurance MEDICARE [facility] [id number] MEDICARE [facility] [id number] MEDICARE [facility] [id number] MEDICARE [facility] [id number] MEDICARE Advance Directives For more information, please contact: [phone] * Full Code (Latest Code Status on [...] 9:20 AM 08/15/2022 4:31 PM Care Teams Glove Boarder Relationship Specialty Start Date End Date Marielos Gonzalez MD [address] [place] [address] PCP - General Family Medicine 07/19/18 Melissa Nichole MD [address] [phone] [place] [address] Consulting Physician General Surgery 07/08/22
--- OUTSIDE RECORDS SUMMARY | 2025-06-19 11:16 | XMS_ITS | Encounter Summary ---
Author Organization [facility] Address [address] [facility] [address] [place] [address] Phone Care Team Providers Care Box Lining Machine Operator Name Role Phone Marielos Gonzalez MD Primary Care Provider Melissa Nichole MD Unavailable [phone] Encounter Details Date Type Department Care Team (Late st Contact Info) Description 10/07/2021 Telephone [facility] Cardiology [address] [facility] Advanced Medicine 8th [place] [address] [place] [address] María Elena Marinelli MD [address] [facility] [address] [place] [address] Social History Tobacco Use Types Packs/Day Years Used Date Smoking Tobacco: Never Smokeless Tobacco: Never Alcohol Use Standard Drinks/Week Comments No 0 (1 standard drink = 0.6 oz pur e alcohol) AUDIT-C Answer Date Recorded Q1: How often do you have a drink containing alc ohol? Never 04/13/2021 Average Number of Drinks Not on file 021 Q3: How often do you have si x or more drinks on one occasion? 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
--- OUTSIDE RECORDS SUMMARY | 2025-06-19 11:17 | XMS_ITS | Encounter Summary ---
Author Organization [facility] Address [address] [facility] [address] [place] [address] Phone Care Team Providers Care Supervisor Gear Repair Name Role Phone Marielos Gonzalez MD Primary Care Provider Melissa Nichole MD Unavailable [phone] Encounter Details Date Type Department Care Team (Late st Contact Info) Description 05/01/2025 Results Follow-Up [facility] Cardiology [address] [facility] [address] [place] [address] Radha Paige, KRYSTYNA [address] [address] ECG 12 lead Social History Tobacco Use Types Packs/Day Years Used Date Smoking Tobacco: Never Passive Smoke Exposure: Never Smokeless Tobacco: Never Alcohol Use Standard Drinks/Week Comments No 0 (1 standard drink = 0.6 oz pur e alcohol) [facility] Utilities Answer Date Recorded In the past 12 months has [employer], [employer], or [employer] threatened to shut off services in your [...] any time in the past 12 m 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
--- OUTSIDE RECORDS SUMMARY | 2025-06-19 11:17 | XMS_ITS | Encounter Summary ---
Author Organization [facility] Address [address] [facility] [address] [place] [address] Phone Care Team Providers Care Drying Tunnel Operator Name Role Phone Marielos Gonzalez MD Primary Care Provider Melissa Nichole MD Unavailable [phone] Encounter Details Date Type Department Care Team (Late st Contact Info) Description 05/28/2025 [facility]phone [facility] Card[facility] [address] [facility] Advanced Medicine 8th [place] [address] [place] [address] María Elena Marinelli MD [address] [facility] [address] [place] [address] Social History Tobacco Use Types Packs/Day Years Used Date Smoking Tobacco: Never Passive Smoke Exposure: Never Smokeless Tobacco: Never Alcohol Use Standard Drinks/Week Comments No 0 (1 standard drink = 0.6 oz pur e alcohol) [facility] Utilities Answer Date Recorded In the past 12 months has [employer], gas, oil, or water company threatened to [...] any time in the past 12 m [facility], were you homeless or living in a residential (including now)? No 08/05/2024 Personal Safety Answer Date Recorded Have you ever been in or are you currently in a harmful physical or emotional relationship or is someone making you feel afraid or unsafe? 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 Prasad * Telephone Encounter - Barbara Renee - 05/28/2025 4:02 PM CDT ----- Message from Nurse Radha Sanders sent at 05/28/2025 12:21 PM CDT ----- Please cancel September appointment with Dr. Prasad. Patient only needs to follow with Dr. Marinelli Thank you. documented in this encounter Plan of Treatment Not on file documented as of this encounter Visit Diagnoses Not on filedocumented in this encounter Care Teams Drying Tunnel Operator Relationship Specialty Start Date End Date Marielos Gonzalez MD [address] [place] [address] PCP - General Family Medicine 07/19/18 Melissa Nichole MD [address] [facility] [phone] [place] [address] Consulting Physician General Surgery 07/08/22 documented as of this encounter
--- OUTSIDE RECORDS SUMMARY | 2025-06-19 11:17 | XMS_ITS | Encounter Summary ---
Author Organization [facility] Address [address] [place] [address] Care Team Providers Care Professor Of Public Administration Name Role Phone Marielos Gonzalez MD Primary Care Provider Melissa Nichole MD Unavailable [phone] Reason for Visit * Cardiology (Routine) - Closed Specialty Diagnoses / Procedures Referred By Contac t Referred To Contact Diagnoses Preop examination Procedures ECG 12 lead Elo Bower, [place] [address] [facility] [address] [place] [address] Phone: tel: fax: [facility] Referral ID Status Reason Start Date Expiration Date Visits Re quested Visits Authorized [id number] Closed 06/17/2025 07/17/2026 1 1 Encounter Details Date Type Department Care Team (Late st Contact Info) Description 06/19/2025 11:15 AM CDT Procedure visit [facility] Cardiology [address] [facility] [address] [place] [address] Preop examination Social History Tobacco Use Types Packs/Day Years Used Date Smoking Tobacco: Never Passive Smoke Exposure: Never Smokeless Tobacco: Never Alcohol Use Standard Drinks/Week Comments No 0 (1 standard drink = 0.6 oz pur e alcohol) [facility] Utilities Answer Date Recorded In the past 12 months has th e electric, gas, oil, or water company threatened to [...] any time in the past 12 m [facility], were you homeless or living in a fpc (including now)? No 08/05/2024 Personal Safety Answer Date Recorded Have you ever been in or are you currently in a harmful physical or emotional relationship or is someone making you feel afraid or unsafe? 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 Marinelli for pre-op back surgery. EKG performed and given to Dr. Andino for review. documented in this encounter Plan of Treatment Not on file documented as of this encounter Visit Diagnoses Diagnosis Preop examination Unspecified pre-operative examination documented in this encounter Orders EKG Orders Without Results Count Last Ordered D ate First Ordered Date ECG 12-LEAD 1 06/19/2025 documented in this encounter Care Teams Professor Of Public Administration Relationship Specialty Start Date End Date Marielos Gonzalez MD [address] [place] [address] PCP - General Family Medicine 07/19/18 Melissa Nichole MD [address] [phone] [place] [address] Consulting Physician General Surgery 07/08/22 documented as of this encounter
--- OUTSIDE RECORDS SUMMARY | 2025-06-19 11:17 | XMS_ITS | Clinical Summary ---
Author Organization [facility] Address [address] [place] [address] Care Team Providers Care Buffing And Sueding Machine Operator Name Role Phone Marielos Gonzalez MD Primary Care Provider Immunizations Immunization Administration Dates Next Due MODERNA COVID-19 (12+) MRNA, LNP-S, PF, 100 MCG/ 0.5 ML DOSE 01/22/2021,12/25/2020 Social History Tobacco Use Types Packs/Day Years Used Date Smoking Tobacco: Never Assessed Sex and Gender Information Value Date Recorded Sex Assigned at Not on file Legal Sex Male 8:00 AM CDT Gender Identity Not on file Sexual Orientation Not on file Last Filed Vital Signs Vital Sign Reading Time Taken Comments Blood Pressure 110/78 05/29/2014 11:10 AM CDT Pulse 64 05/29/2014 11:10 AM CDT Temperature - - Respiratory Rate - - Oxygen Saturation - - Inhaled Oxygen Concentration - - Weight 122.5 kg (270 lb) 08/28/2013 1:44 PM CDT Height 167.6 cm (5' 6) 08/28/2013 1:44 PM CDT Body Mass Index 43.58 08/28/2013 1:44 PM CDT Plan of Treatment Health Maintenance Due Date Last Done Comments Colorectal Cancer Screening Colonoscopy (10 Years) 1950 Hepatitis C 1968 Annual Medicare Wellness Visit 2017 Pneumococcal Vaccine: 50+ Years (3 of 3 - PCV20 or PCV21) 02/28/2023 02/28/2018, 11/20/2012 DTaP, Tdap and Td Vaccines ( 2 - Td or Tdap) 2024 2014 COVID-19 Vaccine (3 - 2023-2 5 season) 2024 01/22/2021, 12/25/2020 RSV Immunization or 60+ Years (1 - 1-dose 75+ series) 2027 Zoster Vaccines Completed 12/16/2019, 09/05/2019 Meningococcal B Vaccine Aged Out No l onger eligible based on patient's age to complete this topic Meningococcal Vaccine Aged Out No robel fernando eligible based on patient's age to complete this topic RSV Immunizations Under 20 Months Aged Out No longer eligible b ased on patient's age to complete this topic Insurance MEDICARE [facility] Care Teams Buffing And Sueding Machine Operator Relationship Specialty Start Date End Date Marielos Gonzalez MD [address] [place] [address] PCP - General FAMILY PRACTICE 04/12/23
[2025-06-19 11:34] LABS: Hematocrit 43.2 % (42.0-52.0); Hemoglobin 14.1 g/dL (14.0-18.0); Immature Granulocyte Percent A 0.2 % (0-0.5); Lymphocytes Absolute Auto 3.67 K/mm3 (0.9-3.2); Mean Corpuscular HGB Conc 32.6 g/dl (32-36); Mean Corpuscular Hemoglobin 31.4 pg (26-34); Mean Corpuscular Volume 96.2 fl (80-100); Nucleated Red Blood Cells Absolute Auto 0.000 K/mm3 (0.0-0.012); Nucleated Red Blood Cells Perc 0.0 % (0.0-0.2); Platelet Count Result 223 k/mm3 (150-375); Red Blood Count 4.49 M/mm3 (4.6-6.20); White Blood Count 8.3 K/mm3 (4.5-10.0)
[2025-06-19 11:36] LABS: Add Urine Microscopic? NO; Appearance Urine Clear (Clear); Glucose Urine UA 3+ mg/dL (Negative); Leukocyte Esterase Ur Negative LEU/UL (Negative); Nitrate Urine Negative (Negative); Specific Grav Ur 1.009 (1.001-1.035)
[2025-06-19 12:02] LABS: CRP < 0.5 mg/dL (<1.0)
== END 2025-06-19 11:00 | disposition home or self-care (01) ==
PROVIDERS: PCP Family Medicine; Visit Provider Physician Assistant
DX: Z01.818 Encounter for other preprocedural examination (principal)
CPT/HCPCS: 36415; 81003; 85025; 85652; 86140